=== PATIENT | female | born 1950 | race Caucasian/White ===

== ENCOUNTER 2020-09-03 12:42 | Outpatient (REF) | payer MEDICARE, SELFPAY ==
--- NOTE | 2020-09-03 12:47 | MM_ITS ---
EXAMINATION: BONE DENSITOMETRY CLINICAL INDICATION: Asymptomatic menopausal state. COMPARISON: Previous BD dated 02/07/2017 and baseline BD dated 04/21/2009. TECHNIQUE: Using a [employer] DXA System (software version: 13.1) manufactured by [employer], dual-energy x-ray absorptiometry was performed of the lumbar spine and left hip. The images are of good technical quality. Summary results are attached. FINDINGS: AP SPINE L1-L4: Current: BMD 1.218 g/cm2, Z-score 1.1, T-score 0.3, normal, 0.1% decrease from previous, 7.3% increase from baseline (<5% change is not significant). Prior: BMD 1.219 g/cm2. Baseline: BMD 1.135 g/cm2. LEFT FEMUR, NECK: Current: BMD 0.761 g/cm2, Z-score -0.9, T-score -2.0, osteopenia. Prior: BMD 0.802 g/cm2. Baseline: BMD 0.799 g/cm2. LEFT FEMUR, TOTAL: Current: BMD 0.858 g/cm2, Z-score -0.4, T-score -1.2, osteopenia, 3.9% decrease from previous, 4.8% decrease from baseline (<5% change is not significant). Prior: BMD 0.893 g/cm2. Baseline: BMD 0.901 g/cm2. IDENTIFIED RISK FACTORS: Menopause, 3 or more alcoholic drinks/day. HISTORY OF FRACTURE: Foot; No insufficiency fracture reported. MEDICATIONS: Calcium supplements or multivitamin, vitamin D. MM/XR DEXA axial skeleton IMPRESSION: 1. DIAGNOSIS: Osteopenia based on the lowest T-score value of -2.0 in the femoral neck applying World Health Organization criteria. 2. 10-YEAR FRACTURE RISK PREDICTION, FRAX: Major osteoporotic fracture (clinical spine, forearm, hip or shoulder) 32.3%. Hip fracture 8.9%. 3. Treatment Recommendations: NOF guidelines recommend consideration for treatment in postmenopausal women and men age 50 and older presenting with the following: -A hip or vertebral (clinical or morphometric) fracture. -T-score less than or equal to -2.5 at the femoral neck or spine after appropriate evaluation to exclude secondary causes. -Low bone mass at the hip or spine and a 10-year fracture probability by FRAX of greater than or equal to 3% for hip fracture or greater than or equal to 20% for major osteoporotic fracture based on the [place] adapted WHO algorithm. 4. Other Recommendations: All treatment decisions require clinical judgment and consideration of individual patient factors, including patient preferences, comorbidities, previous drug use, risk factors not captured in the FRAX model (e.g. frailty, falls, vitamin D deficiency, increased bone turnover, interval significant decline in bone density) and possible under or overestimation of fracture risk by FRAX. Additional medical evaluation for secondary cause of low bone mineral density may be appropriate. FUTURE SCAN RECOMMENDATION: People with diagnosed cases of osteoporosis or at high risk for fracture should have regular bone mineral density tests. For patients eligible for Medicare, routine testing is allowed once every 2 years. The testing frequency can be increased to one year for patients who have rapidly progressing disease, those who are receiving or discontinuing medical therapy to restore bone mass, or have additional risk factors.
--- NOTE | 2020-09-03 12:48 | MM_ITS ---
EXAMINATION: MM SCREENING DIGITAL BREAST TOMOSYNTHESIS, BILATERAL CLINICAL INFORMATION: Screening. Asymptomatic. The lifetime risk of breast cancer based on the Tyrer-Cuzick Model is 4.6%. COMPARISON: Mammography: November 27, 2019 and studies dating back to December 18, 2013 TECHNIQUE: Digital breast tomosynthesis is performed in both the craniocaudal and mediolateral oblique views along with computer-aided detection (CAD). Synthesized 2D images are generated from the tomosynthesis. FINDINGS: There are scattered areas of fibroglandular density (ACR BI-RADS breast composition Category b). There are no significant masses, abnormal calcifications, or other abnormalities. MM/MM tomosynthesis screening BI IMPRESSION: There are no significant changes from prior study. ASSESSMENT: BI-RADS 1: Negative RECOMMENDATION: Routine annual mammography screening. This patient's information was entered into a reminder system with a target due date for their next mammogram.
== END 2020-09-03 12:43 | disposition home or self-care (01) ==
LOC: HO.MAMMO 12:42
PROVIDERS: PCP Internal Medicine; Visit Provider Internal Medicine
DX: Z13.820 Encounter for screening for osteoporosis (principal); Z78.0 Asymptomatic menopausal state; Z79.899 Other long term (current) drug therapy; Z12.31 Encounter for screening mammogram for malignant neoplasm of breast
CPT/HCPCS: 77063; 77067; 77080

== ENCOUNTER 2021-06-22 09:06 | Outpatient (REF) | payer MEDICARE, SELFPAY ==
[2021-06-22 12:17] LABS: Alanine Aminotransferase 48 U/L (0-31); Anion Gap 12 (12-20); Aspartate Amino Transferase 35 U/L (5-31); Blood Urea Nitrogen 11 mg/dL (9-16); Calcium 9.6 mg/dL (8.4-10.2); Carbon Dioxide 30 mmol/L (22-29); Chloride 105 mmol/L (96-108); Cholesterol 164 mg/dL; Estimated Glomerular Filt Rate > 60; Glucose Fasting 117 mg/dL (60-99); HDL Cholesterol 49 mg/dL; LDL Cholesterol Calculated 88 mg/dl; Sodium 143 mmol/L (135-145); Triglycerides 135 mg/dL
[2021-06-22 12:28] LABS: Vitamin D 25-OH Total 51.7 ng/mL (>30)
== END 2021-06-22 09:07 | disposition home or self-care (01) ==
LOC: HO.HMGCLDS 09:06
PROVIDERS: PCP Internal Medicine; Visit Provider Internal Medicine
DX: I10 Essential (primary) hypertension (principal); Z78.0 Asymptomatic menopausal state
CPT/HCPCS: 36415; 80048; 80061; 82306; 84450; 84460

== ENCOUNTER 2021-10-28 09:38 | Outpatient (REF) | payer MEDICARE, SELFPAY ==
--- NOTE | ~2021-10-28 | MM_ITS ---
EXAMINATION: MM SCREENING DIGITAL BREAST TOMOSYNTHESIS, BILATERAL CLINICAL INFORMATION: Screening. Asymptomatic. The lifetime risk of breast cancer based on the Tyrer-Cuzick Model is 4%. COMPARISON: Mammography: 09/03/2020, 11/27/2019 TECHNIQUE: Digital breast tomosynthesis is performed in both the craniocaudal and mediolateral oblique views along with computer-aided detection (CAD). Synthesized 2D images are generated from the tomosynthesis. Additional right CC view is provided. FINDINGS: There are scattered areas of fibroglandular density (ACR BI-RADS breast composition Category b). There are no significant masses, abnormal calcifications, or other abnormalities. Parenchymal pattern is similar to prior studies. There is no developing density or architectural abnormality. The axilla and skin contours are unremarkable. No significant changes. MM/MM tomosynthesis screening BI IMPRESSION: No mammographic evidence of malignancy. ASSESSMENT: BI-RADS 1: Negative RECOMMENDATION: Routine annual mammography screening. This patient's information was entered into a reminder system with a target due date for their next mammogram.
== END 2021-10-28 09:39 | disposition home or self-care (01) ==
LOC: HO.MAMMO 09:38
PROVIDERS: Visit Provider Internal Medicine
DX: Z12.31 Encounter for screening mammogram for malignant neoplasm of breast (principal)
CPT/HCPCS: 77063; 77067

== ENCOUNTER 2021-11-08 08:35 | Outpatient (REF) | payer MEDICARE, SELFPAY ==
[2021-11-08 12:11] LABS: Estimated Average Glucose 114 mg/dL; Hemoglobin A1C 149.3387 umol/L; Hemoglobin A1c % 5.6 %
[2021-11-08 12:31] LABS: Alanine Aminotransferase 27 U/L (0-31); Anion Gap 12 (12-20); Aspartate Amino Transferase 22 U/L (5-31); Blood Urea Nitrogen 15 mg/dL (9-16); Carbon Dioxide 29 mmol/L (22-29); Chloride 103 mmol/L (96-108); Cholesterol 194 mg/dL; Estimated Glomerular Filt Rate > 60; Glucose Fasting 107 mg/dL (60-99); HDL Cholesterol 51 mg/dL; LDL Cholesterol Calculated 110 mg/dl; Potassium 4.1 mmol/L (3.3-5.1); Sodium 140 mmol/L (135-145); Triglycerides 167 mg/dL
[2021-11-08 12:36] LABS: Free T4 (Free Thyroxine) 1.32 ng/dL (0.71-1.85); Thyroid Stimulating Hormone 0.12 uIU/mL (0.32-4.0); Vitamin D 25-OH Total 47.8 ng/mL (>30)
== END 2021-11-08 08:36 | disposition home or self-care (01) ==
LOC: HO.HMGCLDS 08:35
PROVIDERS: PCP Internal Medicine; Visit Provider Internal Medicine
DX: E11.29 Type 2 diabetes mellitus with other diabetic kidney complication (principal); I10 Essential (primary) hypertension; R80.9 Proteinuria, unspecified; E03.9 Hypothyroidism, unspecified
CPT/HCPCS: 36415; 80048; 80061; 82306; 83036; 84439; 84443; 84450; 84460

== ENCOUNTER 2022-03-30 07:52 | Outpatient (REF) | payer MEDICARE, SELFPAY ==
[2022-03-30 11:37] LABS: Estimated Average Glucose 111 mg/dL; Hemoglobin A1c % 5.5 %
[2022-03-30 12:00] LABS: Creatinine Urine 134.33 mg/dL; Microalbum/Creatinine Ratio Ur 16.3 ug/mg cr
[2022-03-30 12:15] LABS: Free T4 (Free Thyroxine) 1.52 ng/dL (0.71-1.85); Thyroid Stimulating Hormone 0.09 uIU/mL (0.32-4.0); Vitamin D 25-OH Total 62.2 ng/mL (>30)
[2022-03-30 12:19] LABS: Alanine Aminotransferase 29 U/L (0-31); Anion Gap 13 (12-20); Aspartate Amino Transferase 24 U/L (5-31); Blood Urea Nitrogen 16 mg/dL (9-16); Calcium 9.7 mg/dL (8.4-10.2); Carbon Dioxide 26 mmol/L (22-29); Chloride 104 mmol/L (96-108); Cholesterol 176 mg/dL; Estimated Glomerular Filt Rate > 60; Glucose Fasting 116 mg/dL (60-99); HDL Cholesterol 54 mg/dL; LDL Cholesterol Calculated 98 mg/dl; Potassium 3.8 mmol/L (3.3-5.1); Sodium 139 mmol/L (135-145); Triglycerides 121 mg/dL
== END 2022-03-30 07:53 | disposition home or self-care (01) ==
LOC: HO.HMGCLDS 07:52
PROVIDERS: Visit Provider Internal Medicine
DX: E03.9 Hypothyroidism, unspecified (principal); E11.29 Type 2 diabetes mellitus with other diabetic kidney complication; E78.5 Hyperlipidemia, unspecified; I10 Essential (primary) hypertension; R80.9 Proteinuria, unspecified; Z78.0 Asymptomatic menopausal state
CPT/HCPCS: 36415; 80048; 80061; 82043; 82306; 83036; 84439; 84443; 84450; 84460

== ENCOUNTER 2022-06-27 07:16 | Outpatient (REF) | payer MEDICARE, SELFPAY ==
[2022-06-27 12:03] LABS: Alanine Aminotransferase 34 U/L (0-31); Anion Gap 15 (12-20); Aspartate Amino Transferase 27 U/L (5-31); Blood Urea Nitrogen 12 mg/dL (9-16); Calcium 9.4 mg/dL (8.4-10.2); Carbon Dioxide 28 mmol/L (22-29); Chloride 102 mmol/L (96-108); Cholesterol 160 mg/dL; Estimated Glomerular Filt Rate > 60; Glucose Fasting 113 mg/dL (60-99); HDL Cholesterol 55 mg/dL; LDL Cholesterol Calculated 84 mg/dl; Potassium 3.9 mmol/L (3.3-5.1); Sodium 141 mmol/L (135-145); Triglycerides 106 mg/dL
[2022-06-27 12:23] LABS: Estimated Average Glucose 114 mg/dL; Hemoglobin A1c % 5.6 %
[2022-06-27 12:31] LABS: Free T4 (Free Thyroxine) 1.35 ng/dL (0.71-1.85)
== END 2022-06-27 07:17 | disposition home or self-care (01) ==
LOC: HO.HMGCLDS 07:16
PROVIDERS: PCP Internal Medicine; Visit Provider Internal Medicine
DX: E11.9 Type 2 diabetes mellitus without complications (principal); E78.5 Hyperlipidemia, unspecified; E03.9 Hypothyroidism, unspecified
CPT/HCPCS: 36415; 80048; 80061; 83036; 84439; 84443; 84450; 84460

== ENCOUNTER 2022-11-16 12:47 | Outpatient (REF) | payer MEDICARE, SELFPAY ==
--- NOTE | ~2022-11-16 | MM_ITS ---
EXAMINATION: BONE DENSITOMETRY CLINICAL INDICATION: Other specified disorders of bone density and structure, left thigh. COMPARISON: Previous BD dated 09/03/2020 and baseline BD dated 04/21/2009. TECHNIQUE: Using a [employer] DXA System (software version: 13.1) manufactured by [employer], dual-energy x-ray absorptiometry was performed of the lumbar spine and left hip. The images are of good technical quality. Summary results are attached. FINDINGS: AP SPINE L1-L4: Current: BMD 1.221 g/cm2, Z-score 1.3, T-score 0.3, normal, 0.2% increase from previous, 7.6% increase from baseline (<5% change is not significant). Prior: BMD 1.218 g/cm2. Baseline: BMD 1.135 g/cm2. LEFT FEMUR, NECK: Current: BMD 0.698 g/cm2, Z-score -1.1, T-score -2.4, osteopenia. Prior: BMD 0.761 g/cm2. Baseline: BMD 0.799 g/cm2. LEFT FEMUR, TOTAL: Current: BMD 0.845 g/cm2, Z-score -0.2, T-score -1.3, osteopenia, 1.5% decrease from previous, 6.2% decrease from baseline (<5% change is not significant). Prior: BMD 0.858 g/cm2. Baseline: BMD 0.901 g/cm2. IDENTIFIED RISK FACTORS: Alcohol (3 or more units per day), glucocorticoids (chronic), history of fracture (adult), menopause, thiazide. HISTORY OF FRACTURE: Ankle, wrist. MEDICATIONS: Multivitamin, vitamin D. MM/XR DEXA axial skeleton IMPRESSION: 1. DIAGNOSIS: Osteopenia based on the lowest T-score value of -2.4 in the femoral neck applying World Health Organization criteria. 2. 10-YEAR FRACTURE RISK PREDICTION, FRAX: Major osteoporotic fracture (clinical spine, forearm, hip or shoulder) 40.3%. Hip fracture 15.4%. 3. Treatment Recommendations: NOF guidelines recommend consideration for treatment in postmenopausal women and men age 50 and older presenting with the following: -A hip or vertebral (clinical or morphometric) fracture. -T-score less than or equal to -2.5 at the femoral neck or spine after appropriate evaluation to exclude secondary causes. -Low bone mass at the hip or spine and a 10-year fracture probability by FRAX of greater than or equal to 3% for hip fracture or greater than or equal to 20% for major osteoporotic fracture based on the [place] adapted WHO algorithm. 4. Other Recommendations: All treatment decisions require clinical judgment and consideration of individual patient factors, including patient preferences, comorbidities, previous drug use, risk factors not captured in the FRAX model (e.g. frailty, falls, vitamin D deficiency, increased bone turnover, interval significant decline in bone density) and possible under or overestimation of fracture risk by FRAX. Additional medical evaluation for secondary cause of low bone mineral density may be appropriate. FUTURE SCAN RECOMMENDATION: People with diagnosed cases of osteoporosis or at high risk for fracture should have regular bone mineral density tests. For patients eligible for Medicare, routine testing is allowed once every 2 years. The testing frequency can be increased to one year for patients who have rapidly progressing disease, those who are receiving or discontinuing medical therapy to restore bone mass, or have additional risk factors.
--- NOTE | ~2022-11-16 | MM_ITS ---
EXAMINATION: MM SCREENING DIGITAL BREAST TOMOSYNTHESIS, BILATERAL CLINICAL INFORMATION: Screening. Asymptomatic. The lifetime risk of breast cancer based on the Tyrer-Cuzick Model is 3%. COMPARISON: Mammography: October 28, 2021 and studies dating back to February 05, 2016 TECHNIQUE: Digital breast tomosynthesis is performed in both the craniocaudal and mediolateral oblique views along with computer-aided detection (CAD). Synthesized 2D images are generated from the tomosynthesis. FINDINGS: There are scattered areas of fibroglandular density (ACR BI-RADS breast composition Category b). There are no significant masses, abnormal calcifications, or other abnormalities. MM/MM tomosynthesis screening BI IMPRESSION: No significant changes ASSESSMENT: BI-RADS 1: Negative RECOMMENDATION: Routine annual mammography screening. This patient's information was entered into a reminder system with a target due date for their next mammogram.
== END 2022-11-16 12:48 | disposition home or self-care (01) ==
LOC: HO.MAMMO 12:47
PROVIDERS: Visit Provider Internal Medicine
DX: Z12.31 Encounter for screening mammogram for malignant neoplasm of breast (principal); Z13.820 Encounter for screening for osteoporosis; M85.852 Other specified disorders of bone density and structure, left thigh; N95.9 Unspecified menopausal and perimenopausal disorder; Z87.81 Personal history of (healed) traumatic fracture
CPT/HCPCS: 77063; 77067; 77080

== ENCOUNTER 2022-12-20 08:18 | Outpatient (REF) | payer MEDICARE, SELFPAY ==
[2022-12-20 11:58] LABS: Alanine Aminotransferase 30 U/L (0-31); Anion Gap 13 (12-20); Aspartate Amino Transferase 26 U/L (5-31); Blood Urea Nitrogen 10 mg/dL (9-16); Calcium 9.7 mg/dL (8.4-10.2); Carbon Dioxide 28 mmol/L (22-29); Chloride 104 mmol/L (96-108); Cholesterol 161 mg/dL; Estimated Average Glucose 128 mg/dL; Estimated Glomerular Filt Rate > 60; Free T4 (Free Thyroxine) 1.32 ng/dL (0.71-1.85); Glucose Fasting 127 mg/dL (60-99); HDL Cholesterol 47 mg/dL; Hemoglobin A1c % 6.1 %; LDL Cholesterol Calculated 90 mg/dl; Potassium 3.9 mmol/L (3.3-5.1); Sodium 141 mmol/L (135-145); Thyroid Stimulating Hormone 0.23 uIU/mL (0.32-4.0); Triglycerides 122 mg/dL; Vitamin D 25-OH Total 75.2 ng/mL (>30)
[2022-12-20 12:40] LABS: Creatinine Urine 198.88 mg/dL
== END 2022-12-20 08:19 | disposition home or self-care (01) ==
LOC: HO.HMGCLDS 08:18
PROVIDERS: PCP Internal Medicine; Visit Provider Internal Medicine
DX: Z00.01 Encounter for general adult medical examination with abnormal findings (principal); E03.9 Hypothyroidism, unspecified; E11.9 Type 2 diabetes mellitus without complications; E78.5 Hyperlipidemia, unspecified; I10 Essential (primary) hypertension; M85.852 Other specified disorders of bone density and structure, left thigh; S52.501A Unspecified fracture of the lower end of right radius, initial encounter for closed fracture; S82.841A Displaced bimalleolar fracture of right lower leg, initial encounter for closed fracture; Z78.0 Asymptomatic menopausal state
CPT/HCPCS: 36415; 80048; 80061; 82043; 82306; 83036; 84439; 84443; 84450; 84460

== ENCOUNTER → 2023-01-05 13:03 | Outpatient (BNVA) | payer MEDICARE, SELFPAY | PROVIDERS: PCP Internal Medicine; Visit Provider Internal Medicine | DX: R94.31 Abnormal electrocardiogram [ECG] [EKG] (principal); R07.2 Precordial pain; R80.9 Proteinuria, unspecified; I10 Essential (primary) hypertension; E78.5 Hyperlipidemia, unspecified; E11.29 Type 2 diabetes mellitus with other diabetic kidney complication | CPT/HCPCS: 99202 ==

== ENCOUNTER → 2023-01-20 07:38 | Outpatient (REF) | payer MEDICARE, SELFPAY ==
--- NOTE | ~2023-01-20 | NM_ITS ---
Exercise Myocardial perfusion study Indication: Precordial chest pain to evaluate for myocardial ischemia Technique: The patient was brought in for an exercise perfusion study on 01/20/2023. Patient performed exercise as per [facility] protocol and was injected 30 mCi of sestamibi was given intravenously one target HR was achieved. Images were obtained using the SPECT gamma camera interlaced with the gating device. Images were obtained in supine position. Resting perfusion study was performed on 01/23/2023. Patient was administered 30 mCi of sestamibi intravenously at rest. Images were then obtained in supine position. Images obtained with and without CT attenuation. Total DLP 116 mGy-cm. Images were processed with the software and compared side to side in short axis, horizontal long axis and vertical long axis views. Findings: The stress perfusion study showed non attenuated images show normal uptake of radiotracer in all segments of LV myocardium. Attenuation corrected images show mildly reduced uptake in the apex of the LV myocardium. The gated study shows normal LV systolic function with calculated LVEF of 72%. LV cavity is normal in size. The gated study shows normal systolic wall thickening and contraction of all segments. There is no transient ischemic dilation. Resting study shows no change in perfusion pattern compared to stress perfusion study. Gating at rest reveals normal systolic wall motion with ejection fraction at 67%. The findings are consistent with normal myocardial perfusion. NM/NM cardiolite stress test Impression: 1. Normal myocardial perfusion 2. Gated LVEF is 67% 3. Transient ischemic dilatation not present Stress EKG is negative for ischemia
--- NOTE | 2023-01-20 07:41 | CA_ITS ---
Transthoracic Echocardiogram Patient (Last, First, Middle): Susana Nava S Gender: Female Date of : 1950 Age: 72 Procedure Date: 01/20/2023 Procedure Type: Transthoracic Echocardiogram Location: OP Height: 167.64 cm Weight: 90.72 kg BSA: 2.00 m2 Heart Rate: 52 bpm BP: 131 / 78 mmHg Marketing Development Specialist: SINTIA Referring MD: Giovany Baker MD Chemical Dependency Therapist: Juan Toro MD Symptoms: R07.2 - Precordial pain Study Quality: Adequate w contrast ECG Rhythm: Bradycardia Conclusions: - 1. Hyperdynamic LV systolic function with LVEF of greater than 70% with normal filling pattern 2. Normal cardiac valvular Dopplers 3. Normal RV systolic pressure 4. No gross pericardial effusion Findings Procedure Information Contrast agent, definity, is being given per protocol without apparent complications. The quality of the study was technically difficult. The study quality is limited by patients body habitus. Left Ventricle Normal left ventricular cavity size. There is normal left ventricular wall thickness. The left ventricular systolic function is hyperdynamic. The visually estimated ejection fraction is >70%. Spectral Doppler is indicative of a normal filling pattern. Right Ventricle Normal right ventricular cavity size and systolic function. Atria The left atrium is normal in size. Interatrial shunt cannot be excluded. The right atrium was not well visualized. Aortic Valve There is mild calcification of the aortic valve. There is no aortic valve stenosis. There is no aortic valve regurgitation. Mitral Valve There is mild anterior and posterior mitral leaflet thickening. There is mild mitral annular calcification. There is trace mitral valve regurgitation. There is no mitral valve stenosis. Pulmonic Valve The pulmonic valve was not well visualized. Tricuspid Valve Likely normal tricuspid valve structure and function. There is trace tricuspid valve regurgitation. The right ventricular systolic pressure is normal. The right ventricular systolic pressure is 20 mmHg. Normal right atrial pressure. There is no evidence of pulmonary hypertension. Great Vessels All visible segments of the aorta are normal in size. The pulmonary artery was not well visualized. Venous The inferior vena cava is normal in size and collapses greater than 50% with inspiration. Pericardium/Pleural There is no evidence of pericardial effusion. Prior Study Comparison No prior study available for comparison. Measurements 2D Linear Measurements IVSd: 1.12 0.6-0.9/0.6-1.0 cm LVIDd: 4.71 3.9-5.3/4.2-5.9 cm LVIDd Index: 2.36 2.4-3.2/2.2-3.1 cm/m2 LVIDs: 3.46 2.0-3.6 cm LVPWd: 0.81 0.7-1.1 cm LA Diam: 3.10 2.7-3.8/3.0-4.0 cm LAIDs Index: 1.55 1.5-2.3 cm/m2 LV Mass: 195.94 67-162/88-224 g LV Mass Index: 97.97 43-95/49-115 g/m2 LVOT Diam: 1.90 3.0+(-)1.3 cm 2D Systolic Function EF 4C: 76.60 >55% EF 2C: 75.10 >55% EF BiP: 73.40 >55% Mitral Valve MV Pk E: 0.94 MV PK A: 1.06 MV Decel Time: 197.00 E/A: 0.90 E'Lateral: 7.62 E'Medial: 5.00 E/E' Med: 18.90 E/E' Lat: 12.40 PHT: 58.00 MVA PHT: 3.79 Decel Carlton: 4.78 Aortic Valve AoV Pk Roddy: 1.31 AoV Pk Grad: 7.00 LIA: 2.17 LVOT LVOT Pk Roddy: 1.00 LVOT Mn Roddy: 0.64 LVOT VTI: 0.23 LVOT Pk Grad: 4.00 LVOT Mn Grad: 2.00 LVOT Diam: 1.90 LVOT Area: 2.84 Diastolic Function MV Pk E: 0.94 MV Pk A: 1.06 E/A: 0.90 E'Medial: 5.00 E/E' Med: 18.90 E' Laterial: 7.62 E/E' Lat: 12.40 Right Ventricle TAPSE (mm): 19.50 TVS' Roddy: 11.90 Tricuspid Valve TR Pk Roddy: 2.08 TR Pk Grad: 17.00 RA Press: 3.00 RVSP: 20.00 Great Vessels Aorta Sinus of Valsalva: 3.10 2.0-3.5 cm Ao Asc: 3.20 2.1-3.4 cm Pulmonary Valve PV Pk Roddy: 1.00 Peak PV Grad: 4.00 Updated in Other Vendor System with Status of Final Juan Toro MD electronically signed on 01/21/2023 1:26:05 PM with status of Final
--- NOTE | 2023-01-20 07:41 | CA_ITS ---
Acquisition Time: 2023-01-20 09:04:38 Total Exercise Time: 00:05:08 Test Indications: abn ekg, cp Medications: see h Protocol: LEXI Max HR: 131 BPM 88% of Pred: 148 BPM Max BP: 166/070 mmHG Max Work Load: 6.2 METS Exercise stress test with exercise 5 min 8 sec of Lexi protocol achieving 88% MPHR, with mild SOB, no chest discomfort, with one ventricular cuplet and one isolated PVCs, with normotensive response to exercise, without EKG changes meeting iscemia. Nuclear images pending. Test reviewed with Dr. Toro. Referred By: Giovany Baker Overread By: JENELLE LOZANO
== END ==
LOC: HO.CARD 07:38
PROVIDERS: PCP Internal Medicine; Visit Provider Internal Medicine
DX: R07.2 Precordial pain (principal)
CPT/HCPCS: 78452; 93017; 93306; A9500; Q9957

== ENCOUNTER 2023-03-22 08:51 | Outpatient (REF) | payer MEDICARE, SELFPAY ==
[2023-03-22 11:47] LABS: Estimated Average Glucose 108 mg/dL; Hemoglobin A1c % 5.4 %
[2023-03-22 12:37] LABS: Alanine Aminotransferase 31 U/L (0-31); Anion Gap 14 (12-20); Aspartate Amino Transferase 29 U/L (5-31); Blood Urea Nitrogen 12 mg/dL (9-16); Calcium 9.8 mg/dL (8.4-10.2); Carbon Dioxide 27 mmol/L (22-29); Chloride 104 mmol/L (96-108); Cholesterol 155 mg/dL; Estimated Glomerular Filt Rate > 60; Glucose Fasting 118 mg/dL (60-99); HDL Cholesterol 48 mg/dL; LDL Cholesterol Calculated 80 mg/dl; Potassium 4.2 mmol/L (3.3-5.1); Sodium 141 mmol/L (135-145); Triglycerides 135 mg/dL
[2023-03-22 12:58] LABS: Free T4 (Free Thyroxine) 1.23 ng/dL (0.71-1.85); Thyroid Stimulating Hormone 0.92 uIU/mL (0.32-4.0); Vitamin D 25-OH Total 86.6 ng/mL (>30)
== END 2023-03-22 08:52 | disposition home or self-care (01) ==
LOC: HO.HMGCLDS 08:51
PROVIDERS: PCP Internal Medicine; Visit Provider Internal Medicine
DX: E03.9 Hypothyroidism, unspecified (principal); E11.9 Type 2 diabetes mellitus without complications; E78.5 Hyperlipidemia, unspecified; F41.1 Generalized anxiety disorder; I10 Essential (primary) hypertension; M85.852 Other specified disorders of bone density and structure, left thigh; R94.31 Abnormal electrocardiogram [ECG] [EKG]; Z78.0 Asymptomatic menopausal state; Z82.49 Family history of ischemic heart disease and other diseases of the circulatory system
CPT/HCPCS: 36415; 80048; 80061; 82306; 83036; 84439; 84443; 84450; 84460

== ENCOUNTER → 2023-04-18 13:29 | Outpatient (BNVA) | payer MEDICARE, SELFPAY | PROVIDERS: PCP Internal Medicine; Referring Provider Internal Medicine; Visit Provider Nurse Practitioner Family | DX: R07.2 Precordial pain (principal); R94.31 Abnormal electrocardiogram [ECG] [EKG]; I10 Essential (primary) hypertension; E11.9 Type 2 diabetes mellitus without complications; E78.5 Hyperlipidemia, unspecified; Z79.899 Other long term (current) drug therapy | CPT/HCPCS: 99212 ==

== ENCOUNTER 2023-06-29 08:48 | Outpatient (REF) | payer MEDICARE, SELFPAY ==
[2023-06-29 12:00] LABS: Estimated Average Glucose 111 mg/dL; Hemoglobin A1c % 5.5 % (<6.0)
[2023-06-29 12:26] LABS: Alanine Aminotransferase 33 U/L (0-31); Anion Gap 12 (12-20); Aspartate Amino Transferase 32 U/L (5-31); Blood Urea Nitrogen 7 mg/dL (9-16); Carbon Dioxide 29 mmol/L (22-29); Chloride 102 mmol/L (96-108); Cholesterol 153 mg/dL (<200); Estimated Glomerular Filt Rate > 60; Free T4 (Free Thyroxine) 1.24 ng/dL (0.71-1.85); Glucose Fasting 115 mg/dL (60-99); HDL Cholesterol 47 mg/dL (>40); LDL Cholesterol Calculated 82 mg/dL (<100); Potassium 3.8 mmol/L (3.3-5.1); Sodium 139 mmol/L (135-145); Thyroid Stimulating Hormone 0.31 uIU/mL (0.32-4.0); Triglycerides 122 mg/dL (<150)
== END 2023-06-29 08:49 | disposition home or self-care (01) ==
LOC: HO.HMGCLDS 08:48
PROVIDERS: PCP Internal Medicine; Visit Provider Internal Medicine
DX: E03.9 Hypothyroidism, unspecified (principal); E11.29 Type 2 diabetes mellitus with other diabetic kidney complication; E78.5 Hyperlipidemia, unspecified; F41.1 Generalized anxiety disorder; R80.9 Proteinuria, unspecified; Z82.49 Family history of ischemic heart disease and other diseases of the circulatory system
CPT/HCPCS: 36415; 80048; 80061; 83036; 84439; 84443; 84450; 84460

== ENCOUNTER 2023-07-05 07:48 | Outpatient (AMB) | payer MEDICARE, SELFPAY ==
--- NOTE | 2023-07-05 08:02 | A.OFFPC_ITS ---
Vital Signs 07/05/23 08:15 Height 5 ft 5 in Weight 198 lb BMI 32.9 BP 132/76 Blood Pressure Location Rt brachial Position Sitting Pulse 65 Pulse Source Pulse Oximeter Pulse Oximetry (%) 98 Oxygen Delivery Method Room Air Intake Visit Reasons: annual PE Intake Note: Pt is here today for her PE Allergies atenolol Allergy (Unknown, Verified 07/05/23 08:18) caused heart to pause lisinopril Allergy (Unknown, Verified 07/05/23 08:18) cough Statin drugs Allergy (Unknown, Uncoded 07/05/23 08:18) muscle/joint px Medication List - Last Reconciled 07/05/23 by Divine Swift MD amlodipine 5 mg PO DAILY aspirin 81 mg PO DAILY blood sugar diagnostic ([employer] Ultra Blue Test Strip) Check fasting blood sugar q.a.m.; cholecalciferol (vitamin D3) 25 mcg PO DAILY coenzyme Q10 (Co Q-10) 300 mg PO DAILY hydrochlorothiazide 25 mg PO DAILY inulin grams PO levocetirizine 5 mg PO BEDTIME levothyroxine 112 mcg PO QAM 3 months losartan 50 mg PO DAILY metformin ER 500 mg PO DAILY milk thistle 1,000 mg PO DAILY lvwuwvqqtlcv-jykleraq-zhzbdl 1 tab PO DAILY omeprazole 40 mg PO DAILY PRN pravastatin 80 mg PO DAILY 90 days turmeric-turmeric root extract 450-50 mg caps PO Tobacco use date assessed: 07/05/23 Fall risk assessment: No Falls in past year Last assessed Fall Risk: 07/05/23 Dental Screening Dental Screen Date: 07/05/23 HPI annual PE HPI Details 73-year-old lady with diabetes mellitus, osteopenia of left femoral neck, acquired hypothyroidism, dyslipidemia, hypertension with generalized anxiety disorder currently stable controlled on present treatment, here today for physical exam. She has been feeling well, with no complaints at present time. She is up-to-date with her screening mammogram bone density scan done earlier this year and is up-to-date with her colon cancer screening with a negative Cologuard done last year. She had recent fasting labs done which showed good control of diabetes, with a hemoglobin A1c at 5.5% fasting lipids are within normal limits but LDL cholesterol goal is less than 70 mg/dL.. She is up-to-date with her diabetes retinopathy screening. Has been having intermittent episodes of constipation lately, used a suppository with some relief. Has been increasing her dietary fiber intake, and has tried moving more. Has recurrent pain in hips, left more than the right, takes an occasional ibuprofen and uses CBD oil which does help. Recently seen by Cardiology and had a Mibi stress test and echocardiogram done which showed normal findings. [facility] Medical History (Updated 07/05/23 @ 08:50 by Divine Swift MD) Acquired hypothyroidism Bimalleolar fracture of right ankle Diabetes mellitus with microalbuminuria, without long-term current use of insulin Distal radius fracture, right Dyslipidemia Essential hypertension Family history of premature coronary artery disease Generalized anxiety disorder Hearing impaired History of wrist fracture Hx of fracture of ankle Osteopenia of left femoral neck Positional lightheadedness Postmenopausal Tinnitus of right ear Type 2 diabetes mellitus without complication, with no history of insulin use Surgical History History of ankle surgery History of tonsillectomy Family History Father Lung cancer Diabetes mellitus Mother Myocardial infarction Diabetes mellitus Brother Secondary squamous cell carcinoma of throat Social History Housing: House Alcohol intake: current Alcohol intake frequency: 3 or more drinks per day Patient Tobacco Use Status: Former Tobacco user Years Smoked: 25 yrs e-Cigarette/Vaping Use: Never Used service: No Current occupational status: retired Cognitive needs: No Hearing needs: No Vision needs: Yes Questionnaire PHQ-9 Over the last 2 weeks, how often have you been bothered by any of the following problems? Depression Screening Interpretation: Negative Source: Developed by Drs. Serafin Dillon, Jyoti Peres, Chandu Montenegro and colleagues, with an educational victorina from [employer]. Thrive Questionnaire Date Thrive assessed: 03/31/23 GLADIS-7 AMB Questionnaire GLADIS-7 Date GLADIS - 7 assessed: 03/31/23 Source: Developed by Drs. Serafin Dillon, Jyoti Peres, Chandu Montenegro and colleagues, with an educational victorina from [employer]. Review of Systems Const Denies fatigue, Denies fever(s), Denies headache(s), Denies malaise, Denies poor appetite and Denies weakness Eyes Details: She is up-to-date with her diabetes retinopathy screening and eye exam Reports no additional complaints ENT Reports Normal hearing present, Denies dry mouth, Denies headache(s), Denies nasal congestion, Denies odynophagia, Denies post nasal drip and Denies sore throat Card Denies syncope, Denies irregular heart rhythm, Denies lightheadedness, Denies palpitations, Denies dyspnea and Denies dyspnea on exertion Resp Denies cough, Denies pain on inspiration, Denies dyspnea, Denies dyspnea on exertion and Denies wheezing GI Denies abdominal pain, Denies melena, Denies hematochezia, Denies change in bowel habits, Denies heartburn, Denies nausea and Denies odynophagia Denies hematuria, Denies dysuria, Denies urinary incontinence and Denies urinary hesitancy Musc Denies abnormal gait, Reports arthralgias (Hip hip and knees), Denies joint swelling and Reports stiffness Skin/Breast Denies breast swelling, Denies breast pain, Denies breast mass, Denies lesions, Denies rash, Reports unusual bruising and Reports other Neuro Reports no additional complaints, Reports Normal hearing present, Denies abnormal gait, Denies syncope, Denies headache(s), Denies lack of coordination, Denies Sensory deficit (Neuro) and Denies weakness Psych Reports no additional complaints Endo Denies cold intolerance, Denies fatigue, Denies polyphagia, Denies polydipsia, Denies polyuria and Denies palpitations Osvaldo/Lymph Denies easy bleeding and Denies easy bruising Aller/Immun Denies seasonal rhinorrhea and Denies wheezing Physical exam (Primary Care) Vital Signs: Last Vital Signs Pulse 65 07/05/23 08:15 Pulse Ox 98 07/05/23 08:15 Oxygen Delivery Method Room Air 07/05/23 08:15 BMI result Body Mass Index 32.9 Tobacco/Smoking Status: Tobacco use Status Tobacco use date assessed 07/05/23 07/05/23 08:03 Patient Tobacco Use Status Former Tobacco user 07/05/23 08:03 e-Cigarette/Vaping Use Never Used 07/05/23 08:03 Depression Screening Interpretation: Negative Thrive Assessment: Date of Thrive Assessment Date Thrive assessed 03/31/23 07/05/23 08:03 Const General: cooperative, comfortable and no acute distress Nutritional Appearance: obese Orientation/consciousness: patient oriented x3 Limitations: no limitations HENMT Ears: external ears normal, TM's normal bilaterally and EAC's normal General nose exam: Normal external nose present and No nasal discharge present Mouth: Normal oral and palatal mucosa present, oropharynx normal and moist mucous membranes Eyes General: appearance normal, both eyes and all related structures Conjunctivae: conjunctivae normal Pupils: Equal, round and reactive pupils present EOM: EOMs intact bilaterally Neck Neck: Yes full ROM, Yes no lymphadenopathy and Yes supple Chest Chest palpation & inspection: normal inspection of the chest Breast/axilla palpation: normal palpation of the breasts Resp Effort & Inspection: normal respiratory effort and able to speak in complete sentences Auscultation: clear to auscultation bilaterally Cardio Rate: regular rate Rhythm: regular rhythm Heart sounds: S1 normal heart sound present and S2 normal heart sound present GI Inspection: Yes normal to inspection Palpation (GI): Soft to palpation, nontender and no masses Auscultation: normal bowel sounds General: Yes deferred Back/Spine/Pelvis Cervical Spine: cervical ROM normal Thoracic/Lumbar Spine: thoracic and lumbar spine normal to inspection Skin General skin exam: no rashes or lesions noted Neuro General: patient oriented x3, gait normal, tone normal, moves all extremities, Normal light touch and pain sensation and no focal motor deficits Cranial nerves: Yes Equal, round and reactive pupils present and Yes Normal hearing present Gait exam (Neuro): Normal gait present Motor exam (neuro): 5/5 motor strength present throughout Sensory Exam: No Sensory deficit (Neuro) Extrem Other: Tenderness on palpation over lateral aspect of left hip joint, full range of motion of hip joints noted General: Yes full ROM, Yes no joint enlargement, Yes no pedal edema, Yes no calf tenderness and Yes normal gait Psych Appearance: grossly normal and well kempt Mental Status: mental status grossly normal Speech and movement: Normal speech and movement present Affect: normal affect Thought process: Normal thought process present Results Reviewed Results Reviewed: Laboratory Tests 06/29/23 09:00 Estimat Average Glucose 111 Hemoglobin A1c % 5.5 ENTERED: 06/29/23-0900 BERNICE KUMAR: ORDERED: Met Prof Fast, AST, ALT, Lipid Panel, Free T4, TSH Test Result Flag Reference Site Sodium 139 135-145 mmol/L Potassium 3.8 3.3-5.1 mmol/L CL 102 96-108 mmol/L CO2 29 22-29 mmol/L Gap 12 12-20 BUN 7 L 9-16 mg/dL Creat 0.74 0.5-1.4 mg/dL EGFR > 60 NOTE: For -[place] individuals, multiply the result by 1.210. Chronic Kidney Disease: Estimated GFR < 60 mL/min/1.73m2 Severe Kidney Disease: Estimated GFR < 15 mL/min/1.73m2 FBS 115 H 60-99 mg/dL A fasting glucose from 100-125 mg/dl is considered impaired (pre-diabetes). CA 10.0 8.4-10.2 mg/dL AST (GOT) 32 H 5-31 U/L ALT (GPT) 33 H 0-31 U/L Triglyceride 122 <150 mg/dL Desirable Triglyceride: less than 150 mg/dL Borderline High Triglyceride 150-199 mg/dL High Triglyceride: 200-499 mg/dL Very High Triglyceride: greater than or equal to 5OO mg/dL Cholesterol 153 <200 mg/dL Desirable Cholesterol: less than 200 mg/dL Borderline High Cholesterol: 200-239 mg/dL High Cholesterol: greater than 239 mg/dL LDL Calculated 82 <100 mg/dL Desirable LDL: less than 100 mg/dL Near Optimal/Above Optimal LDL: 110-129 mg/dL Borderline High LDL: 130-159 mg/dL High LDL: 160-189 mg/dL Very High LDL: greater than or equal to 190 mg/dL HDL 47 >40 mg/dL Desirable HDL: greater than 40 mg/dL Note: This HDL assay may give artificially low results in patients with liver disease. Free T4 1.24 0.71-1.85 ng/dL TSH 3rd Gen. 0.31 L 0.32-4.0 uIU/mL TSH 3rd Generation ([facility]) Assessment and Plan Assessment & Plan (1) Annual visit for general adult medical examination with abnormal findings: Code(s): Z00.01 - Encounter for general adult medical examination with abnormal findings Plan: Recent fasting labs reviewed with patient, continue with regular dental visit every 6 months and your eye exams, goes to [facility], currently up-to-date. Take adequate calcium in diet and vitamin-D 3 at 2000 IU per cap once a day, in addition to weight-bearing exercises to help maintain good muscle tone and weight control. Up-to-date with her bone density screening and screening mammogram. Had a negative Cologuard test done last year. Up-to-date with all her vaccines, reminded to get her 2nd Shingrix vaccination and yearly flu shot and the new COVID booster. (2) Essential hypertension: Code(s): I10 - Essential (primary) hypertension Plan: Blood pressure at goal of less than 130/80. Continue with current medication. Reinforced importance of following a low sodium diet, getting regular exercise, and lowering stress levels. (3) Dyslipidemia: Code(s): E78.5 - Hyperlipidemia, unspecified Plan: Reviewed recent fasting lipid profile with patient with LDL cholesterol at 82 mg/dL, goal less than 70. Will continue with pravastatin 80 mg daily at bedtime, in addition to adherence to low-cholesterol diet and regular exercise, at least 30 minutes 3 to 4 times a week. Advised patient to make healthy food choices, eat more fruits, vegetables, whole grains, wild caught fish and low- fat dairy. Limit amount of meat and fried or fatty food products, as well as processed foods and fast foods. Follow-up scheduled with repeat fasting lipid panel in 3 months. (4) Acquired hypothyroidism: Code(s): E03.9 - Hypothyroidism, unspecified Plan: Feels well on current dose of levothyroxine, will continue at 112 mcg daily, repeat another TSH and free T4 in 3 month (5) Generalized anxiety disorder: Code(s): F41.1 - Generalized anxiety disorder Plan: Controlled with behavioral techniques currently not taking any medications for this at present time. (6) Type 2 diabetes mellitus without complication, with no history of insulin use: Code(s): E11.9 - Type 2 diabetes mellitus without complications Plan: Recent lab results reviewed with patient, with sugar and hemoglobin A1c stable and at goal . Continue with metformin ER 500 mg daily continue to check fasting blood sugar at home, maintain log and bring to next appointment for review. Reinforced diabetic diet and regular exercise with patient. Counseled regarding importance of yearly diabetes retinopathy screening. Patient advised to inspect feet daily, for any signs of injury, callus or infection. Compliance with diet and regular exercise again stressed. Blood pressure goal is less than 130/80, goal LDL is less than 100 and goal hemoglobin A1c is less than 7% follow-up appointment made in-3--months, after fasting labs done. (7) Osteopenia of left femoral neck: Code(s): M85.852 - Other specified disorders of bone density and structure, left thigh Orders: Orders Alanine Aminotransferase 09/29/23 E03.9 - Hypothyroidism, unspecified, E11.9 - Type 2 diabetes mellitus without complications, E78.5 - Hyperlipidemia, unspecified, I10 - Essential (primary) hypertension, M85.852 - Other specified disorders of bone density and structure, left thigh, Z78.0 - Asymptomatic menopausal state Aspartate Amino Transferase 09/29/23 E03.9 - Hypothyroidism, unspecified, E11.9 - Type 2 diabetes mellitus without complications, E78.5 - Hyperlipidemia, unspecified, I10 - Essential (primary) hypertension, M85.852 - Other specified disorders of bone density and structure, left thigh, Z78.0 - Asymptomatic menopausal state Basic Metabolic Panel Fasting 09/29/23 E03.9 - Hypothyroidism, unspecified, E11.9 - Type 2 diabetes mellitus without complications, E78.5 - Hyperlipidemia, unspecified, I10 - Essential (primary) hypertension, M85.852 - Other specified disorders of bone density and structure, left thigh, Z78.0 - Asymptomatic menopausal state Hemoglobin A1c 09/29/23 E03.9 - Hypothyroidism, unspecified, E11.9 - Type 2 diabetes mellitus without complications, E78.5 - Hyperlipidemia, unspecified, I10 - Essential (primary) hypertension, M85.852 - Other specified disorders of bone density and structure, left thigh, Z78.0 - Asymptomatic menopausal state Lipid Panel 09/29/23 E03.9 - Hypothyroidism, unspecified, E11.9 - Type 2 diabetes mellitus without complications, E78.5 - Hyperlipidemia, unspecified, I10 - Essential (primary) hypertension, M85.852 - Other specified disorders of bone density and structure, left thigh, Z78.0 - Asymptomatic menopausal state Free T4 (Free Thyroxine) 09/29/23 E03.9 - Hypothyroidism, unspecified, E11.9 - Type 2 diabetes mellitus without complications, E78.5 - Hyperlipidemia, unspecified, I10 - Essential (primary) hypertension, M85.852 - Other specified disorders of bone density and structure, left thigh, Z78.0 - Asymptomatic menopausal state TSH reflex Free T4 09/29/23 E03.9 - Hypothyroidism, unspecified, E11.9 - Type 2 diabetes mellitus without complications, E78.5 - Hyperlipidemia, unspecified, I10 - Essential (primary) hypertension, M85.852 - Other specified disorders of bone density and structure, left thigh, Z78.0 - Asymptomatic menopausal state Coding Level of Care Code Est Pt Prev Care >65y([id number]) Diagnoses Annual visit for general adult medical examination with abnormal findings Z00.01 Essential hypertension I10 Dyslipidemia E78.5 Acquired hypothyroidism E03.9 Generalized anxiety disorder F41.1 Type 2 diabetes mellitus without complication, with no history of insulin use E11.9 Osteopenia of left femoral neck M85.852
[2023-07-05 08:15] VITALS: BP 132/76; PULSE 65; O2SAT 98; BMI 32.9
== END 2023-07-05 08:53 | disposition home or self-care (01) ==
PROVIDERS: Visit Provider Internal Medicine
DX: Z00.00 Encounter for general adult medical examination without abnormal findings (principal); I10 Essential (primary) hypertension; E03.9 Hypothyroidism, unspecified; E11.9 Type 2 diabetes mellitus without complications; F41.1 Generalized anxiety disorder; E78.5 Hyperlipidemia, unspecified; M85.852 Other specified disorders of bone density and structure, left thigh
CPT/HCPCS: 99397

== ENCOUNTER 2023-10-06 07:55 | Outpatient (REF) | payer MEDICARE, SELFPAY ==
[2023-10-06 12:48] LABS: Estimated Average Glucose 120 mg/dL; Hemoglobin A1c % 5.8 % (<6.0)
[2023-10-06 14:58] LABS: Alanine Aminotransferase 35 U/L (0-31); Anion Gap 16 (12-20); Aspartate Amino Transferase 31 U/L (5-31); Blood Urea Nitrogen 11 mg/dL (9-16); Calcium 9.9 mg/dL (8.4-10.2); Carbon Dioxide 26 mmol/L (22-29); Chloride 103 mmol/L (96-108); Cholesterol 140 mg/dL (<200); Estimated Glomerular Filt Rate > 60; Free T4 (Free Thyroxine) 1.25 ng/dL (0.71-1.85); Glucose Fasting 112 mg/dL (60-99); HDL Cholesterol 49 mg/dL (>40); LDL Cholesterol Calculated 71 mg/dL (<100); Potassium 3.2 mmol/L (3.3-5.1); Sodium 142 mmol/L (135-145); TSH reflex Free T4 0.66 uIU/mL (0.32-4.0); Triglycerides 103 mg/dL (<150)
== END 2023-10-06 07:56 | disposition home or self-care (01) ==
LOC: HO.HMGCLDS 07:55
PROVIDERS: PCP Internal Medicine; Visit Provider Internal Medicine
DX: I10 Essential (primary) hypertension (principal); E78.5 Hyperlipidemia, unspecified; E03.9 Hypothyroidism, unspecified; M85.852 Other specified disorders of bone density and structure, left thigh; E11.9 Type 2 diabetes mellitus without complications; Z78.0 Asymptomatic menopausal state
CPT/HCPCS: 36415; 80048; 80061; 83036; 84439; 84443; 84450; 84460

== ENCOUNTER 2023-10-13 10:33 | Outpatient (AMB) | payer MEDICARE, SELFPAY ==
--- NOTE | 2023-10-13 11:25 | MHC.PC.OV ---
Vital Signs 10/13/23 11:26 Height 5 ft 5 in Weight 196 lb 6 oz BMI 32.7 BP 136/78 Blood Pressure Location Rt brachial Position Sitting Pulse 63 Pulse Source Pulse Oximeter Pulse Oximetry (%) 100 Oxygen Delivery Method Room Air Intake Visit Reasons: 3 Month follow up Intake Note: Pt is here to follow up for her lab results Allergies atenolol Allergy (Unknown, Verified 10/13/23 11:38) caused heart to pause lisinopril Allergy (Unknown, Verified 10/13/23 11:38) cough Statin drugs Allergy (Unknown, Uncoded 10/13/23 11:38) muscle/joint px Medication List - Last Reconciled 10/13/23 by Divine Swift MD amlodipine 5 mg PO DAILY aspirin 81 mg PO DAILY blood sugar diagnostic ([employer] Ultra Blue Test Strip) Check fasting blood sugar q.a.m.; cholecalciferol (vitamin D3) 25 mcg PO DAILY coenzyme Q10 (Co Q-10) 300 mg PO DAILY hydrochlorothiazide 25 mg PO DAILY inulin grams PO levocetirizine 5 mg PO BEDTIME levothyroxine 112 mcg PO QAM 3 months losartan 50 mg PO DAILY metformin ER 500 mg PO DAILY milk thistle 1,000 mg PO DAILY kkqcqshyvsob-uqqhbmip-xqayez 1 tab PO DAILY omeprazole 40 mg PO DAILY PRN pravastatin 80 mg PO DAILY 90 days turmeric-turmeric root extract 450-50 mg caps PO Tobacco use date assessed: 10/13/23 Fall risk assessment: No Falls in past year Last assessed Fall Risk: 10/13/23 Dental Screening Dental Screen Date: 10/13/23 Did you have a dental visit in the last 12 months?: Yes Did you have a dental problem in the last 6 months where you did not have access to dental care?: No Was dental information given to patient?: Patient has dentist HPI 3 Month follow up HPI Details 73-year-old lady here with diabetes mellitus, dyslipidemia, hypothyroidism, and hypertension, here today for follow-up. She has been compliant with taking her medications, follows recommended diet, and tries to stay active.. She had recent fasting labs done which showed he good control diabetes mellitus and cholesterol levels, thyroid levels are within normal limits, but she has hypokalemia with a potassium level of 3.2% He has also been having pain and stiffness in left hip, worse with ambulation, unable to lie on her right side when sleeping. No history of any trauma or strenuous exertion. Has been taking turmeric which has not afforded much relief. [facility] Medical History Family history of premature coronary artery disease Positional lightheadedness Tinnitus of right ear Hearing impaired History of wrist fracture Hx of fracture of ankle Type 2 diabetes mellitus without complication, with no history of insulin use Distal radius fracture, right Osteopenia of left femoral neck Bimalleolar fracture of right ankle Generalized anxiety disorder Acquired hypothyroidism Dyslipidemia Diabetes mellitus with microalbuminuria, without long-term current use of insulin Essential hypertension Postmenopausal Surgical History History of ankle surgery History of tonsillectomy Family History Father Lung cancer Diabetes mellitus Mother Myocardial infarction Diabetes mellitus Brother Secondary squamous cell carcinoma of throat Social History Housing: House Alcohol intake: current Alcohol intake frequency: 3 or more drinks per day Patient Tobacco Use Status: Former Tobacco user Years Smoked: 25 yrs e-Cigarette/Vaping Use: Never Used service: No Current occupational status: retired Cognitive needs: No Hearing needs: No Vision needs: Yes Questionnaire PHQ-9 Over the last 2 weeks, how often have you been bothered by any of the following problems? Depression Screening Interpretation: Negative Depression Screening Done: Yes Source: Developed by Drs. Serafin Dillon, Jyoti Peres, Chandu Montenegro and colleagues, with an educational victorina from [employer]. Thrive Questionnaire Date Thrive assessed: 03/31/23 GLADIS-7 AMB Questionnaire GLADIS-7 Date GLADIS - 7 assessed: 03/31/23 Source: Developed by Drs. Serafin Dillon, Jyoti Peres, Chandu Montenegro and colleagues, with an educational victorina from [employer]. Review of Systems Const Denies fatigue, Denies fever(s), Denies headache(s), Denies malaise, Denies poor appetite and Denies weakness Eyes Details: She is up-to-date with her diabetes retinopathy screening and eye exam Reports no additional complaints ENT Reports Normal hearing present, Denies dry mouth, Denies headache(s), Denies nasal congestion, Denies odynophagia, Denies post nasal drip and Denies sore throat Card Denies syncope, Denies irregular heart rhythm, Denies lightheadedness, Denies palpitations, Denies dyspnea and Denies dyspnea on exertion Resp Denies cough, Denies pain on inspiration, Denies dyspnea, Denies dyspnea on exertion and Denies wheezing GI Denies abdominal pain, Denies melena, Denies hematochezia, Denies change in bowel habits, Denies heartburn, Denies nausea and Denies odynophagia Denies hematuria, Denies dysuria, Denies urinary incontinence and Denies urinary hesitancy Musc Reports as per HPI, Denies abnormal gait, Reports arthralgias (Hip hip and knees), Denies joint swelling and Reports stiffness Skin/Breast Denies breast swelling, Denies breast pain, Denies breast mass, Denies lesions, Denies rash, Reports unusual bruising and Reports other Neuro Reports no additional complaints, Reports Normal hearing present, Denies abnormal gait, Denies syncope, Denies headache(s), Denies lack of coordination, Denies Sensory deficit (Neuro) and Denies weakness Psych Reports no additional complaints Endo Denies cold intolerance, Denies fatigue, Denies polyphagia, Denies polydipsia, Denies polyuria and Denies palpitations Osvaldo/Lymph Denies easy bleeding and Denies easy bruising Aller/Immun Denies seasonal rhinorrhea and Denies wheezing Physical exam (Primary Care) Vital Signs: Last Vital Signs Pulse 63 10/13/23 11:26 BP 136/78 10/13/23 11:26 Pulse Ox 100 10/13/23 11:26 Oxygen Delivery Method Room Air 10/13/23 11:26 BMI result Body Mass Index 32.7 Tobacco/Smoking Status: Tobacco use Status Tobacco use date assessed 10/13/23 10/13/23 11:32 Patient Tobacco Use Status Former Tobacco user 10/13/23 11:26 e-Cigarette/Vaping Use Never Used 10/13/23 11:26 Depression Screening Interpretation: Negative Thrive Assessment: Date of Thrive Assessment Date Thrive assessed 03/31/23 10/13/23 11:26 Const General: cooperative, comfortable and no acute distress Nutritional Appearance: obese Orientation/consciousness: patient oriented x3 Limitations: no limitations HENMT Ears: external ears normal, TM's normal bilaterally and EAC's normal General nose exam: Normal external nose present and No nasal discharge present Mouth: Normal oral and palatal mucosa present, oropharynx normal and moist mucous membranes Eyes General: appearance normal, both eyes and all related structures Conjunctivae: conjunctivae normal Pupils: Equal, round and reactive pupils present EOM: EOMs intact bilaterally Neck Neck: Yes full ROM, Yes no lymphadenopathy and Yes supple Resp Effort & Inspection: normal respiratory effort and able to speak in complete sentences Auscultation: clear to auscultation bilaterally Cardio Rate: regular rate Rhythm: regular rhythm Heart sounds: S1 normal heart sound present and S2 normal heart sound present GI Inspection: Yes normal to inspection Palpation (GI): Soft to palpation, nontender and no masses Auscultation: normal bowel sounds General: Yes deferred Back/Spine/Pelvis Cervical Spine: cervical ROM normal Thoracic/Lumbar Spine: thoracic and lumbar spine normal to inspection Skin General skin exam: no rashes or lesions noted Neuro General: patient oriented x3, gait normal, tone normal, moves all extremities, Normal light touch and pain sensation and no focal motor deficits Cranial nerves: Yes Equal, round and reactive pupils present and Yes Normal hearing present Gait exam (Neuro): Normal gait present Motor exam (neuro): 5/5 motor strength present throughout Sensory Exam: No Sensory deficit (Neuro) Extrem Other: Tenderness on palpation over lateral aspect of left hip joint, full range of motion of hip joints noted General: Yes full ROM, Yes no joint enlargement, Yes no pedal edema, Yes no calf tenderness and Yes normal gait Results Reviewed Results Reviewed: SPEC : [id number] MARISOL: 10/06/23 STATUS: COMP REQ : [id number] RECD: 10/06/[address]: Divine Swift MD COMP: 10/06/23 ENTERED: 10/06/23-[address]: ORDERED: Met Prof Fast, AST, ALT, Lipid Panel, Free T4, TSH Rflx Test Result Flag Reference Site Sodium 142 135-145 mmol/L Potassium 3.2 L 3.3-5.1 mmol/L CL 103 96-108 mmol/L CO2 26 22-29 mmol/L Gap 16 12-20 BUN 11 9-16 mg/dL Creat 0.75 0.5-1.4 mg/dL EGFR > 60 NOTE: For -[place]namese individuals, multiply the result by 1.210. Chronic Kidney Disease: Estimated GFR < 60 mL/min/1.73m2 Severe Kidney Disease: Estimated GFR < 15 mL/min/1.73m2 FBS 112 H 60-99 mg/dL A fasting glucose from 100-125 mg/dl is considered impaired (pre-diabetes). CA 9.9 8.4-10.2 mg/dL AST (GOT) 31 5-31 U/L ALT (GPT) 35 H 0-31 U/L Triglyceride 103 <150 mg/dL Desirable Triglyceride: less than 150 mg/dL Borderline High Triglyceride 150-199 mg/dL High Triglyceride: 200-499 mg/dL Very High Triglyceride: greater than or equal to 5OO mg/dL Cholesterol 140 <200 mg/dL Desirable Cholesterol: less than 200 mg/dL Borderline High Cholesterol: 200-239 mg/dL High Cholesterol: greater than 239 mg/dL LDL Calculated 71 <100 mg/dL Desirable LDL: less than 100 mg/dL Near Optimal/Above Optimal LDL: 110-129 mg/dL Borderline High LDL: 130-159 mg/dL High LDL: 160-189 mg/dL Very High LDL: greater than or equal to 190 mg/dL HDL 49 >40 mg/dL Desirable HDL: greater than 40 mg/dL Note: This HDL assay may give artificially low results in patients with liver disease. Free T4 1.25 0.71-1.85 ng/dL TSH 0.66 0.32-4.0 uIU/mL Laboratory Tests 10/06/23 08:00 Estimat Average Glucose 120 Hemoglobin A1c % 5.8 Assessment and Plan Assessment & Plan (1) Type 2 diabetes mellitus without complication, with no history of insulin use: Code(s): E11.9 - Type 2 diabetes mellitus without complications Plan: Diabetes mellitus controlled, with hemoglobin A1c at 5.8% continued on metformin ER 500 mg once a day. Reinforced with adherence to healthy eating habits and getting regular exercise. (2) Acquired hypothyroidism: Code(s): E03.9 - Hypothyroidism, unspecified Plan: Thyroid levels within normal limits, continued on current dose of levothyroxine at 112 mcg daily in a.m. an hour before breakfast (3) Dyslipidemia: Code(s): E78.5 - Hyperlipidemia, unspecified Plan: Reviewed recent fasting lipid profile with patient with levels within normal limits . Continue with pravastatin 80 mg daily , in addition to adherence to low-cholesterol diet and regular exercise, at least 30 minutes 3 to 4 times a week. Advised patient to make healthy food choices, eat more fruits, vegetables, whole grains, wild caught fish and low-fat dairy. Limit amount of meat and fried or fatty food products, as well as processed foods and fast foods. Follow-up scheduled with repeat fasting lipid panel in 3 months. (4) Essential hypertension: Code(s): I10 - Essential (primary) hypertension Plan: Blood pressure at goal of less than 130/80. Continue with current medication. Reinforced importance of following a low sodium diet, getting regular exercise, and lowering stress levels. (5) Hypokalemia: Code(s): E87.6 - Hypokalemia Plan: Started on potassium chloride 10 mEq per tablet to take 1 tablet daily for 7 days. Recheck potassium levels again in a week (6) Pain in left hip: Code(s): M25.552 - Pain in left hip Plan: X-ray left hip ordered, advised to take ibuprofen 400 mg at bedtime and Tylenol arthritis in a.m., resting of joint advised, apply ice pack or try Salonpas patch with ice applied to affected area twice a day as needed. Call if no improvement of symptoms after week Orders: Orders Potassium 12/29/23 E87.6 - Hypokalemia, E11.9 - Type 2 diabetes mellitus without complications, E03.9 - Hypothyroidism, unspecified, E78.5 - Hyperlipidemia, unspecified, I10 - Essential (primary) hypertension, Z78.0 - Asymptomatic menopausal state Hemoglobin A1c 12/29/23 E11.9 - Type 2 diabetes mellitus without complications, E03.9 - Hypothyroidism, unspecified, E78.5 - Hyperlipidemia, unspecified, I10 - Essential (primary) hypertension, Z78.0 - Asymptomatic menopausal state Microalbumin, Random (w Creat) 12/29/23 E11.9 - Type 2 diabetes mellitus without complications, E03.9 - Hypothyroidism, unspecified, E78.5 - Hyperlipidemia, unspecified, I10 - Essential (primary) hypertension, Z78.0 - Asymptomatic menopausal state Vitamin D 25-OH Total 12/29/23 E11.9 - Type 2 diabetes mellitus without complications, E03.9 - Hypothyroidism, unspecified, E78.5 - Hyperlipidemia, unspecified, I10 - Essential (primary) hypertension, Z78.0 - Asymptomatic menopausal state Thyroid Stimulating Hormone 12/29/23 E11.9 - Type 2 diabetes mellitus without complications, E03.9 - Hypothyroidism, unspecified, E78.5 - Hyperlipidemia, unspecified, I10 - Essential (primary) hypertension, Z78.0 - Asymptomatic menopausal state XR hip LT w PEL1V 10/13/23 M25.552 - Pain in left hip Alanine Aminotransferase 12/29/23 E11.9 - Type 2 diabetes mellitus without complications, E03.9 - Hypothyroidism, unspecified, E78.5 - Hyperlipidemia, unspecified, I10 - Essential (primary) hypertension, Z78.0 - Asymptomatic menopausal state Aspartate Amino Transferase 12/29/23 E11.9 - Type 2 diabetes mellitus without complications, E03.9 - Hypothyroidism, unspecified, E78.5 - Hyperlipidemia, unspecified, I10 - Essential (primary) hypertension, Z78.0 - Asymptomatic menopausal state Basic Metabolic Panel Fasting 12/29/23 E11.9 - Type 2 diabetes mellitus without complications, E03.9 - Hypothyroidism, unspecified, E78.5 - Hyperlipidemia, unspecified, I10 - Essential (primary) hypertension, Z78.0 - Asymptomatic menopausal state Lipid Panel 12/29/23 E11.9 - Type 2 diabetes mellitus without complications, E03.9 - Hypothyroidism, unspecified, E78.5 - Hyperlipidemia, unspecified, I10 - Essential (primary) hypertension, Z78.0 - Asymptomatic menopausal state Free T4 (Free Thyroxine) 12/29/23 E03.9 - Hypothyroidism, unspecified, E11.9 - Type 2 diabetes mellitus without complications, E78.5 - Hyperlipidemia, unspecified, I10 - Essential (primary) hypertension, Z78.0 - Asymptomatic menopausal state Medications: New amoxicillin Take 4 capsules or 2000 mg 1 hour before dental procedure 4 caps 2RF potassium chloride ER 10 mEq PO DAILY 7 caps 0RF E87.6 - Hypokalemia Coding Level of Care Code Est Pt Level 4 (10472) Diagnoses Type 2 diabetes mellitus without complication, with no history of insulin use E11.9 Acquired hypothyroidism E03.9 Dyslipidemia E78.5 Essential hypertension I10 Hypokalemia E87.6 Pain in left hip M25.552
[2023-10-13 11:26] VITALS: BP 136/78; PULSE 63; O2SAT 100; BMI 32.7
== END 2023-10-13 15:30 | disposition home or self-care (01) ==
PROVIDERS: PCP Internal Medicine; Visit Provider Internal Medicine
DX: E11.9 Type 2 diabetes mellitus without complications (principal); E03.9 Hypothyroidism, unspecified; E78.5 Hyperlipidemia, unspecified; I10 Essential (primary) hypertension; E87.6 Hypokalemia; M25.552 Pain in left hip
CPT/HCPCS: 99214

== ENCOUNTER 2023-10-13 12:09 | Outpatient (REF) | payer MEDICARE, SELFPAY ==
--- NOTE | ~2023-10-13 | XR_ITS ---
EXAMINATION: XR HIP, LEFT CLINICAL INFORMATION: Pain in left hip COMPARISON: None available. TECHNIQUE: AP pelvis and 2 views of the left hip. FINDINGS: No fracture. Alignment is anatomic. Minimal narrowing of the superior-lateral aspect of the cartilage space of the left hip. Mild to moderate narrowing of the superior-lateral aspect of the cartilage space of the right hip. The and sacroiliac joints and pubic symphysis are within normal limits. XR/XR hip LT w PEL1V IMPRESSION: Osteoarthritis of the hips, right greater than left.
== END 2023-10-13 12:10 | disposition home or self-care (01) ==
LOC: HO.HMGCX 12:09
PROVIDERS: PCP Internal Medicine; Visit Provider Internal Medicine
DX: M25.552 Pain in left hip (principal)
CPT/HCPCS: 73502

== ENCOUNTER 2023-10-24 12:46 | Outpatient (REF) | payer MEDICARE, SELFPAY ==
[2023-10-24 16:36] LABS: Potassium 3.9 mmol/L (3.3-5.1)
== END 2023-10-24 12:47 | disposition home or self-care (01) ==
LOC: HO.HMGCLDS 12:46
PROVIDERS: PCP Internal Medicine; Visit Provider Internal Medicine
DX: E87.6 Hypokalemia (principal)
CPT/HCPCS: 36415; 84132

== ENCOUNTER 2023-11-10 12:37 | Outpatient (REF) | payer MEDICARE, SELFPAY ==
[2023-11-10 18:03] LABS: Potassium 4.3 mmol/L (3.3-5.1)
== END 2023-11-10 12:38 | disposition home or self-care (01) ==
LOC: HO.HMGCLDS 12:37
PROVIDERS: PCP Internal Medicine; Visit Provider Internal Medicine
DX: I10 Essential (primary) hypertension (principal); E87.6 Hypokalemia
CPT/HCPCS: 36415; 84132

== ENCOUNTER 2023-11-23 09:52 | Outpatient (REF) | payer MEDICARE, SELFPAY ==
--- NOTE | ~2023-11-23 | MM_ITS ---
EXAMINATION: MM SCREENING DIGITAL BREAST TOMOSYNTHESIS, BILATERAL CLINICAL INFORMATION: Screening. Asymptomatic. COMPARISON: Mammography: This study is compared with prior exams dating back to 2019. TECHNIQUE: Digital breast tomosynthesis is performed in both the craniocaudal and mediolateral oblique views along with computer-aided detection (CAD). Synthesized 2D images are generated from the tomosynthesis. FINDINGS: There are scattered areas of fibroglandular density (ACR BI-RADS breast composition Category b). In the upper outer quadrant of the right breast, at the lateral fat glandular interface, there is a focal asymmetry which warrants additional mammographic and targeted sonographic evaluation. Faint calcifications lying within this region and magnification mammography is also advised. In the left breast, there are no significant masses, abnormal calcifications, or other abnormalities. MM/MM tomosynthesis screening BI IMPRESSION: Focal asymmetry with associated calcifications of the right breast warrants additional mammographic and targeted sonographic evaluation. This finding could have separate magnification imaging in addition to the spot compression imaging. No mammographic signs of malignancy left breast. ASSESSMENT: BI-RADS BI-RADS 0 - Incomplete: Needs additional Imaging. RECOMMENDATION: 1. Additional views of the right breast. 2. Targeted ultrasound if warranted after review of the additional views. 3. Radiology department staff will contact the patient for additional imaging. Additional Imaging required This examination should not preclude the clinical evaluation of a suspicious palpable abnormality. This patient's information was entered into a reminder system with a target due date for their next mammogram.
== END 2023-11-23 09:53 | disposition home or self-care (01) ==
LOC: HO.MAMMO 09:52
PROVIDERS: PCP Internal Medicine; Visit Provider Internal Medicine
DX: Z12.31 Encounter for screening mammogram for malignant neoplasm of breast (principal)
CPT/HCPCS: 77063; 77067

== ENCOUNTER → 2023-11-23 10:00 | Outpatient (BNV) | payer MEDICARE, SELFPAY | PROVIDERS: PCP Internal Medicine; Visit Provider Radiology Diagnostic Radiology | DX: Z12.31 Encounter for screening mammogram for malignant neoplasm of breast (principal) | CPT/HCPCS: 77063; 77067 ==

== ENCOUNTER 2023-12-19 09:22 | Outpatient (REF) | payer MEDICARE, SELFPAY ==
--- NOTE | ~2023-12-19 | MM_ITS ---
EXAMINATION: MM DIAGNOSTIC DIGITAL BREAST TOMOSYNTHESIS, right breast CLINICAL INFORMATION: The patient presents for further evaluation of a focal asymmetry and calcification of the upper outer quadrant of the right breast. COMPARISON: Mammography: This study is compared with prior exams dating back to 2019. TECHNIQUE: Digital breast tomosynthesis is performed. 2D images are generated from the tomosynthesis. The following views are obtained: CC and lateral magnification imaging and CC and MLO spot compression along with a full lateral view of the right breast is obtained. FINDINGS: There are scattered areas of fibroglandular density (ACR BI-RADS breast composition Category b). Additional views show no significant mass, architectural abnormality, or abnormal calcifications. Few punctate calcifications are present in the upper outer quadrant of the right breast. The original focal asymmetry is due to overlap of normal glandular tissue in the upper outer quadrant. MM/MM tomosynthesis added views R IMPRESSION: No mammographic evidence of malignancy. ASSESSMENT: BI-RADS BI-RADS 1 - Negative RECOMMENDATION: 1 year F/U Results were provided to the patient at time of visit by the technologist. This patient's information was entered into a reminder system with a target due date for their next mammogram.
== END 2023-12-19 09:23 | disposition home or self-care (01) ==
LOC: HO.MAMMO 09:22
PROVIDERS: PCP Internal Medicine; Visit Provider Internal Medicine
DX: N64.89 Other specified disorders of breast (principal)
CPT/HCPCS: 77061; 77065

== ENCOUNTER → 2023-12-19 10:00 | Outpatient (BNV) | payer MEDICARE, SELFPAY | PROVIDERS: PCP Internal Medicine; Visit Provider Radiology Diagnostic Radiology | DX: R92.1 Mammographic calcification found on diagnostic imaging of breast (principal) | CPT/HCPCS: 77065; G0279 ==

== ENCOUNTER 2024-02-14 08:00 | Outpatient (REF) | payer MEDICARE, SELFPAY ==
[2024-02-14 10:38] LABS: Estimated Average Glucose 126 mg/dL; Hemoglobin A1C 146.9044 umol/L
[2024-02-14 10:54] LABS: Creatinine Urine 99.28 mg/dL
[2024-02-14 11:30] LABS: Alanine Aminotransferase 40 U/L (0-31); Anion Gap 11 (12-20); Aspartate Amino Transferase 35 U/L (5-31); Blood Urea Nitrogen 15 mg/dL (9-16); Calcium 9.7 mg/dL (8.4-10.2); Carbon Dioxide 29 mmol/L (22-29); Chloride 104 mmol/L (96-108); Cholesterol 142 mg/dL (<200); Estimated Glomerular Filt Rate > 60; Glucose Fasting 107 mg/dL (60-99); HDL Cholesterol 45 mg/dL (>40); LDL Cholesterol Calculated 77 mg/dL (<100); Potassium 3.5 mmol/L (3.3-5.1); Sodium 140 mmol/L (135-145); Triglycerides 103 mg/dL (<150)
[2024-02-14 11:49] LABS: Free T4 (Free Thyroxine) 1.23 ng/dL (0.71-1.85); Thyroid Stimulating Hormone 0.55 uIU/mL (0.32-4.0)
== END 2024-02-14 08:01 | disposition home or self-care (01) ==
LOC: HO.HMGCLDS 08:00
PROVIDERS: PCP Internal Medicine; Visit Provider Internal Medicine
DX: E11.9 Type 2 diabetes mellitus without complications (principal); E03.9 Hypothyroidism, unspecified; E78.5 Hyperlipidemia, unspecified; I10 Essential (primary) hypertension; Z78.0 Asymptomatic menopausal state
CPT/HCPCS: 36415; 80048; 80061; 82043; 82306; 82570; 83036; 84439; 84443; 84450; 84460

== ENCOUNTER 2024-02-19 08:52 | Outpatient (AMB) | payer MEDICARE, SELFPAY ==
--- NOTE | 2024-02-19 09:20 | MHC.PC.OV ---
Vital Signs 02/19/24 09:21 Height 5 ft 5 in Weight 197 lb BMI 32.8 BP 132/80 Blood Pressure Location Lt brachial Position Sitting Pulse 73 Pulse Source Pulse Oximeter Pulse Oximetry (%) 98 Oxygen Delivery Method Room Air Intake Visit Reasons: 4 month follow up Intake Note: Pt is here today for her 4 months f/u Allergies atenolol Allergy (Unknown, Verified 02/19/24 10:04) caused heart to pause lisinopril Allergy (Unknown, Verified 02/19/24 10:04) cough Statin drugs Allergy (Unknown, Uncoded 02/19/24 10:04) muscle/joint px Medication List - Last Reconciled 02/19/24 by Divine Swift MD amlodipine 5 mg PO DAILY amoxicillin Take 4 capsules or 2000 mg 1 hour before dental procedure aspirin 81 mg PO DAILY blood sugar diagnostic ([employer] Ultra Blue Test Strip) Check fasting blood sugar q.a.m.; cholecalciferol (vitamin D3) 25 mcg PO DAILY coenzyme Q10 (Co Q-10) 300 mg PO DAILY hydrochlorothiazide 25 mg PO DAILY levocetirizine 5 mg PO BEDTIME levothyroxine 112 mcg PO QAM 3 months losartan 50 mg PO DAILY metformin ER 500 mg PO DAILY milk thistle 1,000 mg PO DAILY gmnvxroqtizz-xevhfmwp-jxqznr 1 tab PO DAILY omeprazole 40 mg PO DAILY PRN pravastatin 80 mg PO DAILY 90 days turmeric-turmeric root extract 450-50 mg caps PO Tobacco use date assessed: 02/19/24 Fall risk assessment: No Falls in past year Last assessed Fall Risk: 02/19/24 Dental Screening Dental Screen Date: 10/13/23 Did you have a dental visit in the last 12 months?: Yes Did you have a dental problem in the last 6 months where you did not have access to dental care?: Yes Was dental information given to patient?: Patient has dentist HPI 4 month follow up HPI Details 73-year-old lady, here today for follow-up on her diabetes mellitus, hypothyroidism, hyperlipidemia, and hypertension.. She has been compliant with taking her medications, tries to follow recommended diet , but has been less active, mostly sedentary for the last 3 months. Blood pressure remains stable and controlled on present treatment. Had recent fasting labs done which showed fasting lipids, are within normal limits, with normal electrolytes and renal function, and diabetes mellitus is stable with hemoglobin A1c at 7%. [facility] Medical History Family history of premature coronary artery disease Positional lightheadedness Tinnitus of right ear Hearing impaired History of wrist fracture Hx of fracture of ankle Type 2 diabetes mellitus without complication, with no history of insulin use Distal radius fracture, right Osteopenia of left femoral neck Bimalleolar fracture of right ankle Generalized anxiety disorder Acquired hypothyroidism Dyslipidemia Diabetes mellitus with microalbuminuria, without long-term current use of insulin Essential hypertension Postmenopausal Surgical History History of ankle surgery History of tonsillectomy Family History Father Lung cancer Diabetes mellitus Mother Myocardial infarction Diabetes mellitus Brother Secondary squamous cell carcinoma of throat Social History Housing: House Alcohol intake: current Alcohol intake frequency: 3 or more drinks per day Patient Tobacco Use Status: Former Tobacco user Years Smoked: 25 yrs e-Cigarette/Vaping Use: Never Used service: No Current occupational status: retired Cognitive needs: No Hearing needs: No Vision needs: Yes Questionnaire PHQ-9 Over the last 2 weeks, how often have you been bothered by any of the following problems? 1. Little interest or pleasure in doing things: not at all 2. Feeling down, depressed, or hopeless: not at all 3. Trouble falling or staying asleep, or sleeping too much: not at all 4. Feeling tired or having little energy: not at all 5. Poor appetite or overeating: not at all 6. Feeling bad about yourself - or that you are a failure or have let yourself or your family down: not at all 7. Trouble concentrating on things, such as reading the newspaper or watching television: not at all 8. Moving or speaking so slowly that other people could have noticed. Or the opposite - being so fidgety or restless that you have been moving around a lot more than usual: not at all 9. Thoughts that you would be better off or of hurting yourself in some way: not at all Total score: 0 Depression Screening Interpretation: Negative Depression Screening Done: Yes 10532 - PHQ-9 Billing: Yes Source: Developed by Drs. Serafin Dillon, Jyoti Peres, Chandu Montenegro and colleagues, with an educational victorina from [email or web address]. Thrive Questionnaire Date Thrive assessed: 02/19/24 I am a: Patient What is your living situation today?: I have a steady place to live Within the past 12 months, did the food you bought not last and you didn't have the money to get more?: Never true Within the past 12 months, did you worry whether your food would run out before you got money to buy more?: Never true Do you have trouble paying for medicines?: No Do you have trouble getting transportation to medical appointments?: No Do you have trouble paying your heating and electricity bill?: No Do you have trouble taking care of your child, family member or friend?: No Do you have trouble with day-to-day activities such as bathing, preparing meals, shopping, managing finances, etc.?: No Are you currently unemployed and looking for a job?: No Are you interested in more education?: No THRIVE Score: 0 AUDIT C Alcohol Use Questionnaire (AUDIT-C) 1. How often do you have a drink containing alcohol?: 4 or more times a week 2. How many drinks containing alcohol do you have on a typical day when you are drinking?: 5 or 6 3. How often do you have six or more drinks on one occasion?: Daily or almost daily Total Score: 10 GLADIS-7 AMB Questionnaire GLADIS-7 Date GLADIS - 7 assessed: 02/19/24 Feeling nervous, anxious, or on edge: 0 = Not at all Not being able to stop or control worryin = Several days Worrying too much about different things: 1 = Several days Trouble relaxin = Not at all Being so restless that it is hard to sit still: 0 = Not at all Becoming easily annoyed or irritable: 0 = Not at all Feeling afraid as if something awful might happen: 0 = Not at all Total GLADIS-7 score (0-4 normal; 5-9 mild; 10-14 moderate; 15-21 severe): 2 Source: Developed by Drs. Serafin Dillon, Chandu Escuderonke and colleagues, with an educational victorina from [email or web address]. GLADIS-7 Assessment Billing GLADIS-7 Assessment Tool: GLADIS-7 Assessment 63707 Review of Systems Const Denies fatigue, Denies fever(s), Denies headache(s), Denies malaise, Denies poor appetite and Denies weakness Eyes Details: She is up-to-date with her diabetes retinopathy screening and eye exam Reports no additional complaints ENT Reports Normal hearing present, Denies headache(s) and Denies odynophagia Card Denies syncope, Denies irregular heart rhythm, Denies lightheadedness, Denies palpitations, Denies dyspnea and Denies dyspnea on exertion Resp Denies cough, Denies pain on inspiration, Denies dyspnea, Denies dyspnea on exertion and Denies wheezing GI Denies abdominal pain, Denies melena, Denies hematochezia, Denies change in bowel habits, Denies heartburn, Denies nausea and Denies odynophagia Denies hematuria, Denies dysuria, Denies urinary incontinence and Denies urinary hesitancy Musc Reports as per HPI, Denies abnormal gait, Reports arthralgias (Hip hip and knees), Denies joint swelling and Reports stiffness Skin/Breast Denies breast swelling, Denies breast pain, Denies breast mass, Denies lesions, Denies rash, Reports unusual bruising and Reports other Neuro Reports Normal hearing present, Denies abnormal gait, Denies syncope, Denies headache(s), Denies Sensory deficit (Neuro) and Denies weakness Psych Reports no additional complaints Endo Denies cold intolerance, Denies fatigue, Denies polyphagia, Denies polydipsia, Denies polyuria and Denies palpitations Osvaldo/Lymph Denies easy bleeding and Denies easy bruising Aller/Immun Denies seasonal rhinorrhea and Denies wheezing Physical exam (Primary Care) Vital Signs: Last Vital Signs Pulse 73 02/19/24 09:21 BP 132/80 02/19/24 09:21 Pulse Ox 98 02/19/24 09:21 Oxygen Delivery Method Room Air 02/19/24 09:21 BMI result Body Mass Index 32.8 Tobacco/Smoking Status: Tobacco use Status Tobacco use date assessed 02/19/24 02/19/24 09:28 Patient Tobacco Use Status Former Tobacco user 02/19/24 09:28 e-Cigarette/Vaping Use Never Used 02/19/24 09:28 PHQ-9: PHQ-9 Score PHQ-9: Total score 0 02/20/24 01:04 Depression Screening Interpretation: Negative Thrive Assessment: Date of Thrive Assessment Date Thrive assessed 02/19/24 02/19/24 09:34 Advance Care Planning discussion: Completed/Scanned Date of discussion: 02/19/24 Who was present: Patient Forms completed: Health Care Proxy and MOLST Time spent: 16-45 minutes Actual minutes spent: 16 Const General: cooperative, comfortable and no acute distress Nutritional Appearance: obese Orientation/consciousness: patient oriented x3 Limitations: no limitations HENMT Ears: external ears normal, TM's normal bilaterally and EAC's normal General nose exam: Normal external nose present and No nasal discharge present Mouth: Normal oral and palatal mucosa present, oropharynx normal and moist mucous membranes Eyes General: appearance normal, both eyes and all related structures Conjunctivae: conjunctivae normal Pupils: Equal, round and reactive pupils present EOM: EOMs intact bilaterally Neck Neck: Yes full ROM, Yes no lymphadenopathy and Yes supple Resp Effort & Inspection: normal respiratory effort and able to speak in complete sentences Auscultation: clear to auscultation bilaterally Cardio Rate: regular rate Rhythm: regular rhythm Heart sounds: S1 normal heart sound present and S2 normal heart sound present GI Inspection: Yes normal to inspection Palpation (GI): Soft to palpation, nontender and no masses Auscultation: normal bowel sounds General: Yes deferred Back/Spine/Pelvis Cervical Spine: cervical ROM normal Thoracic/Lumbar Spine: thoracic and lumbar spine normal to inspection Skin General skin exam: no rashes or lesions noted Neuro General: patient oriented x3, gait normal, tone normal, moves all extremities, Normal light touch and pain sensation and no focal motor deficits Cranial nerves: Yes Equal, round and reactive pupils present and Yes Normal hearing present Gait exam (Neuro): Normal gait present Motor exam (neuro): 5/5 motor strength present throughout Sensory Exam: No Sensory deficit (Neuro) Extrem General: Yes full ROM, Yes no joint enlargement, Yes no pedal edema, Yes no calf tenderness and Yes normal gait Psych Appearance: grossly normal and well kempt Mental Status: mental status grossly normal Speech and movement: Normal speech and movement present Affect: normal affect Immunizations pneumoc 20-cristian conj-dip cr(PF) 0.5 mL IM syringe Performing Provider: Divine Swift MD Performing Location[place] [facility] [place] [facility] Administered by: Fatemeh Vickers CMA on 02/19/24 10:12 Dose Route Admin Location Dispensed Lot Number Expiration Date NDC Automatic Nailing Machine Feeder 0.5 mL IM Left Deltoid 0.5 mL [id number] 01/27/25 0696-7030-95 [employer] VIS Given Date VIS Provided VIS Publication Date 02/19/24 Single Vaccine 21 Eligibility Eligibility Date Funding Source Not VFC Eligible 02/19/24 Private Results Reviewed Results Reviewed: Name: Susana Wilburn Age/Sex: 73/F : 1950 Unit#: [id number] Attend Dr: Divine Swift MD Re02/14/24 Status: DEP REF Location: [facility] Disch: SPEC : [id number] MARISOL: 02/14/24 STATUS: COMP REQ : [id number] RECD: 02/14/24-[address]: Divine Swift MD COMP: 02/14/24-1149 ENTERED: 02/14/24-[address]: ORDERED: Met Prof Fast, AST, ALT, Lipid Panel, Vitamin D 25-OH, Free T4, TSH Test Result Flag Reference Sodium 140 135-145 mmol/L Potassium 3.5 3.3-5.1 mmol/L CL 104 96-108 mmol/L CO2 29 22-29 mmol/L Gap 11 L 12-20 BUN 15 9-16 mg/dL Creat 0.74 0.5-1.4 mg/dL EGFR > 60 NOTE: For -Greek individuals, multiply the result by 1.210. Chronic Kidney Disease: Estimated GFR < 60 mL/min/1.73m2 Severe Kidney Disease: Estimated GFR < 15 mL/min/1.73m2 FBS 107 H 60-99 mg/dL A fasting glucose from 100-125 mg/dl is considered impaired (pre-diabetes). CA 9.7 8.4-10.2 mg/dL AST (GOT) 35 H 5-31 U/L ALT (GPT) 40 H 0-31 U/L Triglyceride 103 <150 mg/dL Desirable Triglyceride: less than 150 mg/dL Borderline High Triglyceride 150-199 mg/dL High Triglyceride: 200-499 mg/dL Very High Triglyceride: greater than or equal to 5OO mg/dL Cholesterol 142 <200 mg/dL Desirable Cholesterol: less than 200 mg/dL Borderline High Cholesterol: 200-239 mg/dL High Cholesterol: greater than 239 mg/dL LDL Calculated 77 <100 mg/dL Desirable LDL: less than 100 mg/dL Near Optimal/Above Optimal LDL: 110-129 mg/dL Borderline High LDL: 130-159 mg/dL High LDL: 160-189 mg/dL Very High LDL: greater than or equal to 190 mg/dL HDL 45 >40 mg/dL Desirable HDL: greater than 40 mg/dL Note: This HDL assay may give artificially low results in patients with liver disease. Vit D 25-OH Tot 70.0 >30 ng/mL Health Based Reference Values* < 20 ng/mL Deficient 20-30 ng/mL Insufficient > 30 ng/mL Sufficient Laboratory Tests 02/14/24 08:25 Urine Creatinine 99.28 Urine Microalbumin 7.0 Microalb/Creat Ratio 7.0 Assessment and Plan Assessment & Plan (1) Type 2 diabetes mellitus without complication, with no history of insulin use: Code(s): E11.9 - Type 2 diabetes mellitus without complications Plan: Recent lab results reviewed with patient, with sugar and hemoglobin A1c stable and at goal . Continue with metformin ER 500 mg once a day, continue to check fasting blood sugar at home, maintain log and bring to next appointment for review. Reinforced diabetic diet and regular exercise with patient. Counseled regarding importance of yearly diabetes retinopathy screening currently up-to-date. Patient advised to inspect feet daily, for any signs of injury, callus or infection. Compliance with diet and regular exercise again stressed. Blood pressure goal is less than 130/80, goal LDL is less than 100 and goal hemoglobin A1c is less than 7% follow-up appointment made in-6--months, after fasting labs done. Up-to-date with her vaccinations, Prevnar 20 given today (2) Acquired hypothyroidism: Code(s): E03.9 - Hypothyroidism, unspecified Plan: Thyroid levels are within normal limits, continue with levothyroxine 112 mcg daily in a.m., recheck again in 6 months (3) Dyslipidemia: Code(s): E78.5 - Hyperlipidemia, unspecified Plan: Reviewed recent fasting lipid profile with patient with levels within normal limits . Continue with pravastatin , in addition to adherence to low-cholesterol diet and regular exercise, at least 30 minutes 3 to 4 times a week. Advised patient to make healthy food choices, eat more fruits, vegetables, whole grains, wild caught fish and low-fat dairy. Limit amount of meat and fried or fatty food products, as well as processed foods and fast foods. Follow-up scheduled with repeat fasting lipid panel in 6 months. (4) Essential hypertension: Code(s): I10 - Essential (primary) hypertension Plan: Blood pressure at goal of less than 130/80. Continue with current medication. Reinforced importance of following a low sodium diet, getting regular exercise, and lowering stress levels. (5) Advanced directives, counseling/discussion: Code(s): Z71.89 - Other specified counseling Plan: Initiated the conversation about Advanced Directives. Advanced Directives help patients prepare for current and future decisions about their medical treatment and place of care. Discussed with patient that it is a process where a patients current condition and prognosis are reviewed, their wishes for information regarding their illness are elicited, and likely medical dilemmas are presented and options discussed. Healthcare proxy form and MOLST form done today. These forms can be amended as needed, reviewed yearly and make changes as needed Orders: Orders Pneumococcal 20 Immunization 02/19/24 Z23 - Encounter for immunization Lipid Panel 07/15/24 E03.9 - Hypothyroidism, unspecified, E11.9 - Type 2 diabetes mellitus without complications, E78.5 - Hyperlipidemia, unspecified, I10 - Essential (primary) hypertension Thyroid Stimulating Hormone 07/15/24 E03.9 - Hypothyroidism, unspecified, E11.9 - Type 2 diabetes mellitus without complications, E78.5 - Hyperlipidemia, unspecified, I10 - Essential (primary) hypertension Free T4 (Free Thyroxine) 07/15/24 E03.9 - Hypothyroidism, unspecified, E11.9 - Type 2 diabetes mellitus without complications, E78.5 - Hyperlipidemia, unspecified, I10 - Essential (primary) hypertension Hemoglobin A1c 07/15/24 E03.9 - Hypothyroidism, unspecified, E11.9 - Type 2 diabetes mellitus without complications, E78.5 - Hyperlipidemia, unspecified, I10 - Essential (primary) hypertension Alanine Aminotransferase 07/15/24 E03.9 - Hypothyroidism, unspecified, E11.9 - Type 2 diabetes mellitus without complications, E78.5 - Hyperlipidemia, unspecified, I10 - Essential (primary) hypertension Aspartate Amino Transferase 07/15/24 E03.9 - Hypothyroidism, unspecified, E11.9 - Type 2 diabetes mellitus without complications, E78.5 - Hyperlipidemia, unspecified, I10 - Essential (primary) hypertension Basic Metabolic Panel Fasting 07/15/24 E03.9 - Hypothyroidism, unspecified, E11.9 - Type 2 diabetes mellitus without complications, E78.5 - Hyperlipidemia, unspecified, I10 - Essential (primary) hypertension Coding Level of Care Code Est Pt Level 4 (37237) Diagnoses Type 2 diabetes mellitus without complication, with no history of insulin use E11.9 Acquired hypothyroidism E03.9 Dyslipidemia E78.5 Essential hypertension I10 Advanced directives, counseling/discussion Z71.89 Additional Codes GLADIS-7 Assessment Billing - GLADIS-7 Assessment Tool: GLADIS-7 Assessment 85635 ([id number]) Vital Signs *Quality* - Advance Care Planning discussion: Completed/Scanned ([id number]) Vital Signs *Quality* - Time spent: 16-45 minutes ([id number])
[2024-02-19 09:21] VITALS: BP 132/80; PULSE 73; O2SAT 98; BMI 32.8
== END 2024-02-19 10:09 | disposition home or self-care (01) ==
PROVIDERS: PCP Internal Medicine; Visit Provider Internal Medicine
DX: E11.69 Type 2 diabetes mellitus with other specified complication (principal); E03.9 Hypothyroidism, unspecified; E78.5 Hyperlipidemia, unspecified; I10 Essential (primary) hypertension; Z71.89 Other specified counseling; Z00.00 Encounter for general adult medical examination without abnormal findings
CPT/HCPCS: 1123F; 90471; 90677; 99214; 99497

== ENCOUNTER 2024-07-10 08:48 | Outpatient (REF) | payer MEDICARE, SELFPAY ==
[2024-07-10 10:48] LABS: Alanine Aminotransferase 34 U/L (0-31); Anion Gap 13 (12-20); Aspartate Amino Transferase 32 U/L (5-31); Blood Urea Nitrogen 8 mg/dL (9-16); Carbon Dioxide 28 mmol/L (22-29); Chloride 104 mmol/L (96-108); Cholesterol 136 mg/dL (<200); Estimated Glomerular Filt Rate > 60; Glucose Fasting 125 mg/dL (60-99); HDL Cholesterol 44 mg/dL (>40); LDL Cholesterol Calculated 69 mg/dL (<100); Sodium 141 mmol/L (135-145); Triglycerides 118 mg/dL (<150)
[2024-07-10 10:58] LABS: Estimated Average Glucose 120 mg/dL; Hemoglobin A1c % 5.8 % (<6.0)
[2024-07-10 11:04] LABS: Free T4 (Free Thyroxine) 1.31 ng/dL (0.71-1.85); Thyroid Stimulating Hormone 0.15 uIU/mL (0.32-4.0)
== END 2024-07-10 08:49 | disposition home or self-care (01) ==
LOC: HO.HMGCLDS 08:48
PROVIDERS: PCP Internal Medicine; Visit Provider Internal Medicine
DX: E11.9 Type 2 diabetes mellitus without complications (principal); E03.9 Hypothyroidism, unspecified; E78.5 Hyperlipidemia, unspecified; I10 Essential (primary) hypertension
CPT/HCPCS: 36415; 80048; 80061; 83036; 84439; 84443; 84450; 84460

== ENCOUNTER 2024-07-17 07:57 | Outpatient (AMB) | payer MEDICARE, SELFPAY ==
--- NOTE | 2024-07-17 08:03 | A.OFFPC_ITS ---
Vital Signs 07/17/24 08:11 Height 5 ft 5 in Weight 194 lb BMI 32.3 BP 130/90 H Blood Pressure Location Rt brachial Position Sitting Pulse 66 Pulse Source Pulse Oximeter Pulse Oximetry (%) 97 Intake Visit Reasons: annual PE Intake Note: Pt is here today for her PE: Last cologuard 11/23/21, mammogram 12/19/23, bone density scan 11/16/22 Allergies atenolol Allergy (Unknown, Verified 07/17/24 08:25) caused heart to pause lisinopril Allergy (Unknown, Verified 07/17/24 08:25) cough Statin drugs Allergy (Unknown, Uncoded 07/17/24 08:25) muscle/joint px Medication List - Last Reconciled 07/17/24 by Divine Swift MD amlodipine 5 mg PO DAILY aspirin 81 mg PO DAILY blood sugar diagnostic ([employer] Ultra Blue Test Strip) Check fasting blood sugar q.a.m.; cholecalciferol (vitamin D3) 25 mcg PO DAILY coenzyme Q10 (Co Q-10) 300 mg PO DAILY hydrochlorothiazide 25 mg PO DAILY levocetirizine 5 mg PO BEDTIME levothyroxine 112 mcg PO QAM 3 months losartan 50 mg PO DAILY metformin ER 500 mg PO DAILY milk thistle 1,000 mg PO DAILY lifigohdgrma-ajrwaodu-ydqnkt 1 tab PO DAILY omeprazole 40 mg PO DAILY PRN pravastatin 80 mg PO DAILY 90 days turmeric-turmeric root extract 450-50 mg caps PO Tobacco use date assessed: 07/17/24 Fall risk assessment: No Falls in past year Last assessed Fall Risk: 07/17/24 Dental Screening Dental Screen Date: 07/17/24 Did you have a dental visit in the last 12 months?: No Did you have a dental problem in the last 6 months where you did not have access to dental care?: No Was dental information given to patient?: Patient has dentist HPI annual PE HPI Details 74 year-old lady with past medical histo ry of diabetes mellitus, hypothyroidism, hyperlipidemia, and hypertension, here today for physical exam. She is up-to-date with her routine screenings, with Cologuard 11/23/21, mammogram 12/19/23, bone density scan 11/16/22. Had recent fasting labs done which showed good control of diabetes and cholesterol levels, blood pressure within normal limits, but TSH mildly depressed compared to last check however is asymptomatic with no alteration in bowel movements, no increased fatigue. 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 She has been taking Tylenol arthritis and lying on a heating pad and applying as well absorbent drea ointment which has been helping. Denies any muscle weakness, no urine incontinence reported. Goes to [facility] for her diabetes retinopathy screening. [facility] Medical History Family history of premature coronary artery disease Positional lightheadedness Tinnitus of right ear Hearing impaired History of wrist fracture Hx of fracture of ankle Type 2 diabetes mellitus without complication, with no history of insulin use Distal radius fracture, right Osteopenia of left femoral neck Bimalleolar fracture of right ankle Generalized anxiety disorder Acquired hypothyroidism Dyslipidemia Diabetes mellitus with microalbuminuria, without long-term current use of insulin Essential hypertension Postmenopausal Surgical History History of ankle surgery History of tonsillectomy Family History Father Lung cancer Diabetes mellitus Mother Myocardial infarction Diabetes mellitus Brother Secondary squamous cell carcinoma of throat Social History Housing: House Alcohol intake: current Alcohol intake frequency: 3 or more drinks per day Patient Tobacco Use Status: Former Tobacco user Years Smoked: 25 yrs e-Cigarette/Vaping Use: Never Used service: No Current occupational status: retired Cognitive needs: No Hearing needs: No Vision needs: Yes Questionnaire PHQ-9 Over the last 2 weeks, how often have you been bothered by any of the following problems? 1. Little interest or pleasure in doing things: not at all 2. Feeling down, depressed, or hopeless: not at all 3. Trouble falling or staying asleep, or sleeping too much: not at all 4. Feeling tired or having little energy: not at all 5. Poor appetite or overeating: not at all 6. Feeling bad about yourself - or that you are a failure or have let yourself or your family down: not at all 7. Trouble concentrating on things, such as reading the newspaper or watching television: not at all 8. Moving or speaking so slowly that other people could have noticed. Or the opposite - being so fidgety or restless that you have been moving around a lot more than usual: not at all 9. Thoughts that you would be better off or of hurting yourself in some way: not at all Total score: 0 Depression Screening Interpretation: Negative Depression Screening Done: Yes 90920 - PHQ-9 Billing: Yes Source: Developed by Drs. Serafin Dillon, Chandu Escudero and colleagues, with an educational victorina from [employer]. Thrive Questionnaire Date Thrive assessed: 07/17/24 I am a: Patient What is your living situation today?: I have a steady place to live THRIVE Score: 0 GLADIS-7 AMB Questionnaire GLADIS-7 Date GLADIS - 7 assessed: 02/19/24 Source: Developed by Drs. Serafin Dillon, Jyoti Peres, Chandu Montenegro and colleagues, with an educational victorina from [employer]. Review of Systems Const Denies fatigue, Denies fever(s), Denies headache(s), Denies malaise, Denies poor appetite and Denies weakness Eyes Details: She is up-to-date with her diabetes retinopathy screening and eye exam Reports no additional complaints ENT Reports Normal hearing present, Denies headache(s) and Denies odynophagia Card Denies syncope, Denies irregular heart rhythm, Denies lightheadedness, Denies palpitations, Denies dyspnea and Denies dyspnea on exertion Resp Denies cough, Denies pain on inspiration, Denies dyspnea, Denies dyspnea on exertion and Denies wheezing GI Denies abdominal pain, Denies melena, Denies hematochezia, Denies change in bowel habits, Denies heartburn, Denies nausea and Denies odynophagia Denies hematuria, Denies dysuria, Denies urinary incontinence and Denies urinary hesitancy Musc Reports as per HPI, Denies abnormal gait, Reports arthralgias (Hip hip and knees), Denies joint swelling and Reports stiffness Skin/Breast Denies breast swelling, Denies breast pain, Denies breast mass, Denies lesions, Denies rash, Reports unusual bruising and Reports other Neuro Reports Normal hearing present, Denies abnormal gait, Denies syncope, Denies headache(s), Denies Sensory deficit (Neuro) and Denies weakness Psych Reports no additional complaints Endo Denies cold intolerance, Denies fatigue, Denies polyphagia, Denies polydipsia, Denies polyuria and Denies palpitations Osvaldo/Lymph Denies easy bleeding and Denies easy bruising Aller/Immun Denies seasonal rhinorrhea and Denies wheezing Physical exam (Primary Care) Tobacco/Smoking Status: Tobacco use Status Tobacco use date assessed 02/19/24 07/17/24 08:04 Patient Tobacco Use Status Former Tobacco user 07/17/24 08:04 e-Cigarette/Vaping Use Never Used 07/17/24 08:04 PHQ-9: PHQ-9 Score PHQ-9: Total score 0 07/17/24 08:04 Depression Screening Interpretation: Negative Thrive Assessment: Date of Thrive Assessment Date Thrive assessed 07/17/24 07/17/24 08:04 Const General: cooperative, comfortable and no acute distress Nutritional Appearance: obese Orientation/consciousness: patient oriented x3 HENMT Ears: external ears normal, TM's normal bilaterally and EAC's normal General nose exam: Normal external nose present and No nasal discharge present Mouth: Normal oral and palatal mucosa present, oropharynx normal and moist mucous membranes Eyes General: appearance normal, both eyes and all related structures Conjunctivae: conjunctivae normal Pupils: Equal, round and reactive pupils present EOM: EOMs intact bilaterally Neck Neck: Yes full ROM, Yes no lymphadenopathy and Yes supple Resp Effort & Inspection: normal respiratory effort and able to speak in complete s entences Auscultation: clear to auscultation bilaterally Cardio Rate: regular rate Rhythm: regular rhythm Heart sounds: S1 normal heart sound present and S2 normal heart sound present GI Inspection: Yes normal to inspection Palpation (GI): Soft to palpation, nontender and no masses Auscultation: normal bowel sounds General: Yes deferred Back/Spine/Pelvis Cervical Spine: cervical ROM normal Thoracic/Lumbar Spine: Lasegue's sign negative, straight leg raise negative bilaterally and paraspinal muscle tenderness (bilateral lumbar area) Skin General skin exam: no rashes or lesions noted Neuro General: patient oriented x3, gait normal, tone normal, moves all extremities, Normal light touch and pain sensation and no focal motor deficits Cranial nerves: Yes Equal, round and reactive pupils present and Yes Normal hearing present Gait exam (Neuro): Normal gait present Motor exam (neuro): 5/5 motor strength present throughout Sensory Exam: No Sensory deficit (Neuro) Extrem General: Yes full ROM, Yes no joint enlargement, Yes no pedal edema, Yes no calf tenderness and Yes normal gait Psych Appearance: grossly normal and well kempt Mental Status: mental status grossly normal Speech and movement: Normal speech and movement present Affect: normal affect Results Reviewed Results Reviewed: Laboratory Tests 07/10/24 08:52 Estimat Average Glucose 120 Hemoglobin A1c % 5.8 Name: Susana Wilburn Age/Sex: 74/F : 1950 Unit#: [id number] Attend Dr: Divine Swift MD Re07/10/24 Status: DEP REF Location: [facility] Disch: SPEC : [id number] MARISOL: 07/10/24 STATUS: COMP REQ : [id number] RECD: 07/10/24-[address]: Divine Swift MD COMP: 07/10/24-1103 ENTERED: 07/10/24-[address]: ORDERED: Met Prof Fast, AST, ALT, Lipid Panel, Free T4, TSH Test Result Flag Reference Sodium 141 135-145 mmol/L Potassium 4.0 3.3-5.1 mmol/L CL 104 96-108 mmol/L CO2 28 22-29 mmol/L Gap 13 12-20 BUN 8 L 9-16 mg/dL Creat 0.79 0.5-1.4 mg/dL EGFR > 60 NOTE: For -[place] individuals, multiply the result by 1.210. Chronic Kidney Disease: Estimated GFR < 60 mL/min/1.73m2 Severe Kidney Disease: Estimated GFR < 15 mL/min/1.73m2 FBS 125 H 60-99 mg/dL A fasting glucose from 100-125 mg/dl is considered impaired (pre-diabetes). CA 10.0 8.4-10.2 mg/dL AST (GOT) 32 H 5-31 U/L ALT (GPT) 34 H 0-31 U/L Triglyceride 118 <150 mg/dL Desirable Triglyceride: less than 150 mg/dL Borderline High Triglyceride 150-199 mg/dL High Triglyceride: 200-499 mg/dL Very High Triglyceride: greater than or equal to 5OO mg/dL Cholesterol 136 <200 mg/dL Desirable Cholesterol: less than 200 mg/dL Borderline High Cholesterol: 200-239 mg/dL High Cholesterol: greater than 239 mg/dL LDL Calculated 69 <100 mg/dL Desirable LDL: less than 100 mg/dL Near Optimal/Above Optimal LDL: 110-129 mg/dL Borderline High LDL: 130-159 mg/dL High LDL: 160-189 mg/dL Very High LDL: greater than or equal to 190 mg/dL HDL 44 >40 mg/dL Desirable HDL: greater than 40 mg/dL Note: This HDL assay may give artificially low results in patients with liver disease. Free T4 1.31 0.71-1.85 ng/dL TSH 3rd Gen. 0.15 L 0.32-4.0 uIU/mL TSH 3rd Generation ([facility]) Laboratory Tests 02/14/24 08:20 Hemoglobin A1c % 6.0 Laboratory Tests 02/14/24 08:25 Microalb/Creat Ratio 7.0 Assessment and Plan Assessment & Plan (1) Osteopenia of left femoral neck: Code(s): M85.852 - Other specified disorders of bone density and structure, left thigh Plan: Continue with cholecalciferol supplements, take adequate calcium from dietary sources, continue with regular weight-bearing exercise which includes walking. Repeat bone density scan ordered for 12/16/2024 together with her screening mammogram next year (2) Acquired hypothyroidism: Code(s): E03.9 - Hypothyroidism, unspecified Plan: TSH decreased on recent lab draw, with normal free T4. Will repeat another TSH and free T4 in 6 weeks, in the meantime will continue on current dose of levothyroxine 112 mcg daily in a.m. (3) Lumbago: Code(s): M54.50 - Low back pain, unspecified Qualifiers: Chronicity: acute Back pain laterality: bilateral Sciatica presence: without sciatica Qualified Code(s): M54.50 - Low back pain, unspecified Plan: Continue with applying heat or applying Salonpas patch to affected area in lower back, may take Tylenol arthritis 500 mg every 6 hours as needed alternating with ibuprofen 200 mg per tablet. (4) Dyslipidemia: Code(s): E78.5 - Hyperlipidemia, unspecified Plan: Reviewed recent fasting lipid profile with patient with levels within normal . Continue pravastatin 80 mg daily at night , in addition to adherence to low-cholesterol diet and regular exercise, at least 30 minutes 3 to 4 times a week. Advised patient to make healthy food choices, eat more fruits, vegetables, whole grains, wild caught fish and low-fat dairy. Limit amount of meat and fried or fatty food products, as well as processed foods and fast foods. Follow-up scheduled with repeat fasting lipid panel in 6 months. (5) Essential hypertension: Code(s): I10 - Essential (primary) hypertension Plan: Blood pressure at goal of less than 130/80. Continue with current medication. Reinforced importance of following a low sodium diet, getting regular exercise, and lowering stress levels. (6) Type 2 diabetes mellitus without complication, with no history of insulin use: Code(s): E11.9 - Type 2 diabetes mellitus without complications Plan: Recent lab results reviewed with patient, with sugar and hemoglobin A1c stable and at goal. Continue with metformin 500 mg once a day, continue to check fasting blood sugar at home, maintain log and bring to next appointment for review. Reinforced diabetic diet and regular exercise with patient. Up-to-date with her diabetes retinopathy screening, goes to [facility] . Patient advi sed to inspect feet daily, for any signs of injury, callus or infection. Compliance with diet and regular exercise again stressed. Blood pressure goal is less than 130/80, goal LDL is less than 100 and goal hemoglobin A1c is less than 7% follow-up appointment made in-see--months, after fasting labs done. (7) Annual visit for general adult medical examination with abnormal findings: Code(s): Z00.01 - Encounter for general adult medical examination with abnormal findings Plan: Recent fasting labs discussed with patient. Continue with dental visit every 6 months and regular eye exams, yearly, goes to [facility]. Take adequate calcium in diet and vitamin-D 3 at 2000 IU per cap once a day, in addition to weight-bearing exercises to help maintain good muscle tone and weight control. Instructed to do self-breast exam, and continue yearly mammogram, ordered a repeat bone density scan to be done next year together with screening mammogram up-to-date with her Cologuard testing, due again next year. Up-to-date with all her vaccinations, reminded to get her yearly flu shot and COVID booster Orders: Orders XR DEXA axial skeleton Today M85.852 - Other specified disorders of bone density and structure, left thigh, Z78.0 - Asymptomatic menopausal state Free T4 (Free Thyroxine) 6 Weeks E03.9 - Hypothyroidism, unspecified Aspartate Amino Transferase 12/28/24 E03.9 - Hypothyroidism, unspecified, E11.9 - Type 2 diabetes mellitus without complications, E78.5 - Hyperlipidemia, unspecified, I10 - Essential (primary) hypertension, M85.852 - Other specified disorders of bone density and structure, left thigh, Z78.0 - Asymptomatic menopausal state Microalbumin, Random (w Creat) 12/28/24 E03.9 - Hypothyroidism, unspecified, E11.9 - Type 2 diabetes mellitus without complications, E78.5 - Hyperlipidemia, unspecified, I10 - Essential (primary) hypertension, M85.852 - Other specified disorders of bone density and structure, left thigh, Z78.0 - Asymptomatic menopausal state Thyroid Stimulating Hormone 6 Weeks E03.9 - Hypothyroidism, unspecified Hemoglobin A1c 12/28/24 E03.9 - Hypothyroidism, unspecified, E11.9 - Type 2 diabetes mellitus without complications, E78.5 - Hyperlipidemia, unspecified, I10 - Essential (primary) hypertension, M85.852 - Other specified disorders of bone density and structure, left thigh, Z78.0 - Asymptomatic menopausal state Lipid Panel 12/28/24 E03.9 - Hypothyroidism, unspecified, E11.9 - Type 2 diabetes mellitus without complications, E78.5 - Hyperlipidemia, unspecified, I10 - Essential (primary) hypertension, M85.852 - Other specified disorders of bone density and structure, left thigh, Z78.0 - Asymptomatic menopausal state Alanine Aminotransferase 12/28/24 E03.9 - Hypothyroidism, unspecified, E11.9 - Type 2 diabetes mellitus without complications, E78.5 - Hyperlipidemia, unspecified, I10 - Essential (primary) hypertension, M85.852 - Other specified disorders of bone density and structure, left thigh, Z78.0 - Asymptomatic menopausal state Basic Metabolic Panel Fasting 12/28/24 E03.9 - Hypothyroidism, unspecified, E11.9 - Type 2 diabetes mellitus without complications, E78.5 - Hyperlipidemia, unspecified, I10 - Essential (primary) hypertension, M85.852 - Other specified disorders of bone density and structure, left thigh, Z78.0 - Asymptomatic menopausal state Thyroid Stimulating Hormone 12/28/24 E03.9 - Hypothyroidism, unspecified, E11.9 - Type 2 diabetes mellitus without complications, E78.5 - Hyperlipidemia, unspecified, I10 - Essential (primary) hypertension, M85.852 - Other specified disorders of bone density and structure, left thigh, Z78.0 - Asymptomatic menopausal state Free T4 (Free Thyroxine) 12/28/24 E03.9 - Hypothyroidism, unspecified, E11.9 - Type 2 diabetes mellitus without complications, E78.5 - Hyperlipidemia, unspecified, I10 - Essential (primary) hypertension, M85.852 - Other specified disorders of bone density and structure, left thigh, Z78.0 - Asymptomatic menopausal state Vitamin D 25-OH Total 12/28/24 E03.9 - Hypothyroidism, unspecified, E11.9 - Type 2 diabetes mellitus without complications, E78.5 - Hyperlipidemia, unspecified, I10 - Essential (primary) hypertension, M85.852 - Other specified disorders of bone density and structure, left thigh, Z78.0 - Asymptomatic menopausal state Coding Level of Care Code Est Pt Prev Care >65y(03169) Diagnoses Osteopenia of left femoral neck M85.852 Acquired hypothyroidism E03.9 Acute bilateral low back pain without sciatica M54.50 Chronicity: acute Back pain laterality: bilateral Sciatica presence: without sciatica Dyslipidemia E78.5 Essential hypertension I10 Type 2 diabetes mellitus without complication, with no history of insulin use E11.9 Annual visit for general adult medical examination with abnormal findings Z.
[2024-07-17 08:11] VITALS: BP 130/90; PULSE 66; O2SAT 97; BMI 32.3
== END 2024-07-17 08:58 | disposition home or self-care (01) ==
PROVIDERS: PCP Internal Medicine; Visit Provider Internal Medicine
DX: Z00.00 Encounter for general adult medical examination without abnormal findings (principal); E11.69 Type 2 diabetes mellitus with other specified complication; E78.5 Hyperlipidemia, unspecified; M85.852 Other specified disorders of bone density and structure, left thigh; E03.9 Hypothyroidism, unspecified; M54.50 Low back pain, unspecified; I10 Essential (primary) hypertension

== ENCOUNTER → 2024-07-17 07:57 | Outpatient (BNVA) | payer MEDICARE, SELFPAY | PROVIDERS: PCP Internal Medicine; Visit Provider Internal Medicine ==

== ENCOUNTER 2024-10-02 09:09 | Outpatient (REF) | payer MEDICARE, SELFPAY ==
[2024-10-02 11:12] LABS: Thyroid Stimulating Hormone 0.83 uIU/mL (0.32-4.0)
== END 2024-10-02 09:10 | disposition home or self-care (01) ==
LOC: HO.HMGCLDS 09:09
PROVIDERS: PCP Internal Medicine; Visit Provider Internal Medicine
DX: E03.9 Hypothyroidism, unspecified (principal)
CPT/HCPCS: 36415; 84439; 84443

== ENCOUNTER 2024-12-18 10:59 | Outpatient (REF) | payer MEDICARE, SELFPAY | END 2024-12-18 11:00 | disposition home or self-care (01) | LOC: HO.MAMMO 10:59 | PROVIDERS: PCP Internal Medicine; Visit Provider Internal Medicine | DX: Z12.31 Encounter for screening mammogram for malignant neoplasm of breast (principal); Z13.820 Encounter for screening for osteoporosis; Z78.0 Asymptomatic menopausal state; M85.852 Other specified disorders of bone density and structure, left thigh | CPT/HCPCS: 77063; 77067; 77080 ==

== ENCOUNTER → 2024-12-18 11:30 | Outpatient (BNV) | payer MEDICARE, SELFPAY | PROVIDERS: PCP Internal Medicine; Visit Provider Radiology Diagnostic Radiology | DX: Z12.31 Encounter for screening mammogram for malignant neoplasm of breast (principal) | CPT/HCPCS: 77063; 77067 ==

== ENCOUNTER 2025-01-16 09:13 | Outpatient (REF) | payer MEDICARE, SELFPAY ==
[2025-01-16 10:26] LABS: Estimated Average Glucose 120 mg/dL; Hemoglobin A1c % 5.8 % (<6.0)
[2025-01-16 11:05] LABS: Alanine Aminotransferase 36 U/L (0-31); Anion Gap 12 (12-20); Aspartate Amino Transferase 33 U/L (5-31); Blood Urea Nitrogen 7 mg/dL (9-16); Calcium 9.6 mg/dL (8.4-10.2); Carbon Dioxide 28 mmol/L (22-29); Chloride 104 mmol/L (96-108); Cholesterol 154 mg/dL (<200); Estimated Glomerular Filt Rate > 60; Glucose Fasting 114 mg/dL (60-99); HDL Cholesterol 52 mg/dL (>40); LDL Cholesterol Calculated 77 mg/dL (<100); Potassium 3.3 mmol/L (3.3-5.1); Sodium 141 mmol/L (135-145); Triglycerides 128 mg/dL (<150)
[2025-01-16 11:13] LABS: Free T4 (Free Thyroxine) 1.46 ng/dL (0.71-1.85); Vitamin D 25-OH Total 85.9 ng/mL (>30)
[2025-01-16 13:53] LABS: Creatinine Urine 130.31 mg/dL; Microalbum/Creatinine Ratio Ur 16.1 ug/mg cr (<30)
== END 2025-01-16 09:14 | disposition home or self-care (01) ==
LOC: HO.HMGCLDS 09:13
PROVIDERS: PCP Internal Medicine; Visit Provider Internal Medicine
DX: E11.9 Type 2 diabetes mellitus without complications (principal); M85.852 Other specified disorders of bone density and structure, left thigh; Z78.0 Asymptomatic menopausal state; I10 Essential (primary) hypertension; E78.5 Hyperlipidemia, unspecified; E03.9 Hypothyroidism, unspecified
CPT/HCPCS: 36415; 80048; 80061; 82043; 82306; 82570; 83036; 84439; 84443; 84450; 84460

== ENCOUNTER 2025-01-23 10:37 | Outpatient (AMB) | payer MEDICARE, SELFPAY ==
[2025-01-23 12:04] VITALS: BP 128/72; PULSE 67; RESP 15; TEMP 36.8; O2SAT 97; BMI 32.1
--- NOTE | 2025-01-23 12:04 | MHC.PC.OV ---
Vital Signs 01/23/25 12:04 Height 5 ft 5 in Weight 193 lb BMI 32.1 BP 128/72 Blood Pressure Location Lt brachial Position Sitting Respiration 15 Pulse 67 Pulse Source Pulse Oximeter Temp 98.2 F Temp Source Oral Pulse Oximetry (%) 97 Oxygen Delivery Method Room Air Intake Visit Reasons: 6m F/U-Reschedule Intake Note: Pt is here today for her 6mo. f/u Allergies atenolol Allergy (Unknown, Verified 01/23/25 12:26) caused heart to pause lisinopril Allergy (Unknown, Verified 01/23/25 12:26) cough Statin drugs Allergy (Unknown, Uncoded 01/23/25 12:26) muscle/joint px Medication List - Last Reconciled 01/23/25 by Divine Swift MD amlodipine 5 mg PO DAILY aspirin 81 mg PO DAILY blood sugar diagnostic (Xola Ultra Blue Test Strip) Check fasting blood sugar q.a.m.; cholecalciferol (vitamin D3) 25 mcg PO DAILY coenzyme Q10 (Co Q-10) 300 mg PO DAILY hydrochlorothiazide 25 mg PO DAILY levocetirizine 5 mg PO BEDTIME levothyroxine 112 mcg PO QAM 3 months losartan 50 mg PO DAILY metformin ER 500 mg PO DAILY milk thistle 1,000 mg PO DAILY bvbouxjiwela-oucdqhza-hvpavo 1 tab PO DAILY omeprazole 40 mg PO DAILY PRN pravastatin 80 mg PO DAILY 90 days turmeric-turmeric root extract 450-50 mg caps PO Tobacco use date assessed: 01/23/25 Fall risk assessment: No Falls in past year Dental Screening Dental Screen Date: 01/23/25 Did you have a dental visit in the last 12 months?: No Did you have a dental problem in the last 6 months where you did not have access to dental care?: No Was dental information given to patient?: Patient has dentist HPI 6m F/U-Reschedule HPI Details 74 year old lady with history of hypertension, diabetes mellitus, hypothyroidism and dyslipidemia, here today for he follow-up visit. She has been feeling well, compliant with her medications and diet. Latest fasting labs showed diabetes well controlled at with a hemoglobin A1c of 5.8%, with normal fasting lipids, thyroid levels, electrolytes and renal function. [facility] Medical History (Updated 01/23/25 @ 12:40 by Divine Swift MD) Peripheral neuropathy Family history of premature coronary artery disease Positional lightheadedness Tinnitus of right ear Hearing impaired History of wrist fracture Hx of fracture of ankle Type 2 diabetes mellitus without complication, with no history of insulin use Distal radius fracture, right Osteopenia of left femoral neck Bimalleolar fracture of right ankle Generalized anxiety disorder Acquired hypothyroidism Dyslipidemia Diabetes mellitus with microalbuminuria, without long-term current use of insulin Essential hypertension Postmenopausal Surgical History History of ankle surgery History of tonsillectomy Family History Father Lung cancer Diabetes mellitus Mother Myocardial infarction Diabetes mellitus Brother Secondary squamous cell carcinoma of throat Social History Housing: House Alcohol intake: current Alcohol intake frequency: 3 or more drinks per day Patient Tobacco Use Status: Former Tobacco user Years Smoked: 25 yrs e-Cigarette/Vaping Use: Never Used service: No Current occupational status: retired Cognitive needs: No Hearing needs: No Vision needs: Yes Questionnaire PHQ-9 Over the last 2 weeks, how often have you been bothered by any of the following problems? 1. Little interest or pleasure in doing things: not at all 2. Feeling down, depressed, or hopeless: not at all 3. Trouble falling or staying asleep, or sleeping too much: not at all 4. Feeling tired or having little energy: not at all 5. Poor appetite or overeating: not at all 6. Feeling bad about yourself - or that you are a failure or have let yourself or your family down: not at all 7. Trouble concentrating on things, such as reading the newspaper or watching television: not at all 8. Moving or speaking so slowly that other people could have noticed. Or the opposite - being so fidgety or restless that you have been moving around a lot more than usual: not at all 9. Thoughts that you would be better off or of hurting yourself in some way: not at all Total score: 0 Depression Screening Interpretation: Negative Depression Screening Done: Yes [id number] - PHQ-9 Billing: Yes Source: Developed by Rickey Barretoet B.W. Ja, Chandu Montenegro and colleagues, with an educational victorina from [employer]. Thrive Questionnaire Date Thrive assessed: 01/16/25 I am a: Patient What is your living situation today?: I have a steady place to live Within the past 12 months, did the food you bought not last and you didn't have the money to get more?: Never true Within the past 12 months, did you worry whether your food would run out before you got money to buy more?: Never true Do you have trouble paying for medicines?: No Do you have trouble getting transportation to medical appointments?: No Do you have trouble paying your heating and electricity bill?: No Do you have trouble taking care of your child, family member or friend?: No Do you have trouble with day-to-day activities such as bathing, preparing meals, shopping, managing finances, etc.?: No Are you currently unemployed and looking for a job?: No Are you interested in more education?: No Please select the resources that you would like help with: None THRIVE Score: 0 AUDIT C Alcohol Use Questionnaire (AUDIT-C) 1. How often do you have a drink containing alcohol?: 2-3 times a week 2. How many drinks containing alcohol do you have on a typical day when you are drinking?: 3 or 4 3. How often do you have six or more drinks on one occasion?: Less than monthly Total Score: 5 GLADIS-7 AMB Questionnaire GLADIS-7 Date GLADIS - 7 assessed: 01/23/25 Feeling nervous, anxious, or on edge: 0 = Not at all Not being able to stop or control worryin = Not at all Worrying too much about different things: 0 = Not at all Trouble relaxin = Not at all Being so restless that it is hard to sit still: 0 = Not at all Becoming easily annoyed or irritable: 0 = Not at all Feeling afraid as if something awful might happen: 0 = Not at all Total GLADIS-7 score (0-4 normal; 5-9 mild; 10-14 moderate; 15-21 severe): 0 Source: Developed by Jyoti Barreto, Chandu Montenegro and colleagues, with an educational victorina from [employer]. Review of Systems Const Denies fatigue, Denies fever(s), Denies headache(s), Denies malaise, Denies poor appetite and Denies weakness Eyes Details: She is up-to-date with her diabetes retinopathy screening and eye exam , goes to [facility] Reports no additional complaints ENT Reports Normal hearing present, Denies headache(s) and Denies odynophagia Card Denies syncope, Denies irregular heart rhythm, Denies lightheadedness, Denies palpitations, Denies dyspnea and Denies dyspnea on exertion Resp Denies cough, Denies pain on inspiration, Denies dyspnea, Denies dyspnea on exertion and Denies wheezing GI Denies abdominal pain, Denies melena, Denies hematochezia, Denies change in bowel habits, Denies heartburn, Denies nausea and Denies odynophagia Denies hematuria, Denies dysuria, Denies urinary incontinence and Denies urinary hesitancy Musc Reports as per HPI, Denies abnormal gait, Reports arthralgias (Hip hip and knees), Denies joint swelling and Reports stiffness Skin/Breast Denies breast swelling, Denies breast pain, Denies breast mass, Denies lesions and Denies rash Neuro Reports Normal hearing present, Denies abnormal gait, Denies syncope, Denies headache(s), Denies Sensory deficit (Neuro) and Denies weakness Psych Reports no additional complaints Endo Denies cold intolerance, Denies fatigue, Denies polyphagia, Denies polydipsia, Denies polyuria and Denies palpitations Osvaldo/Lymph Denies easy bleeding and Denies easy bruising Aller/Immun Denies seasonal rhinorrhea and Denies wheezing Physical exam (Primary Care) Vital Signs: Last Vital Signs Temp 98.2 F 01/23/25 12:04 Pulse 67 01/23/25 12:04 Resp 15 01/23/25 12:04 BP 128/72 01/23/25 12:04 Pulse Ox 97 01/23/25 12:04 Oxygen Delivery Method Room Air 01/23/25 12:04 BMI result Body Mass Index 32.1 Tobacco/Smoking Status: Tobacco use Status Tobacco use date assessed 01/23/25 01/23/25 12:09 Patient Tobacco Use Status Former Tobacco user 01/23/25 12:09 e-Cigarette/Vaping Use Never Used 01/23/25 12:09 PHQ-9: PHQ-9 Score PHQ-9: Total score 0 01/23/25 12:43 Depression Screening Interpretation: Negative Thrive Assessment: Date of Thrive Assessment Date Thrive assessed 01/16/25 01/23/25 12:09 Const General: cooperative, comfortable and no acute distress Nutritional Appearance: obese Orientation/consciousness: patient oriented x3 HENMT Ears: external ears normal, TM's normal bilaterally and EAC's normal General nose exam: Normal external nose present and No nasal discharge present Mouth: Normal oral and palatal mucosa present, oropharynx normal and moist mucous membranes Eyes General: appearance normal, both eyes and all related structures Conjunctivae: conjunctivae normal Pupils: Equal, round and reactive pupils present EOM: EOMs intact bilaterally Neck Neck: Yes full ROM, Yes no lymphadenopathy and Yes supple Resp Effort & Inspection: normal respiratory effort and able to speak in complete sentences Auscultation: clear to auscultation bilaterally Cardio Rate: regular rate Rhythm: regular rhythm Heart sounds: S1 normal heart sound present and S2 normal heart sound present GI Inspection: Yes normal to inspection Palpation (GI): Soft to palpation, nontender and no masses Auscultation: normal bowel sounds General: Yes deferred Skin General skin exam: no rashes or lesions noted Neuro General: patient oriented x3, gait normal, tone normal, moves all extremities, Normal light touch and pain sensation and no focal motor deficits Cranial nerves: Yes Equal, round and reactive pupils present and Yes Normal hearing present Gait exam (Neuro): Normal gait present Motor exam (neuro): 5/5 motor strength present throughout Sensory Exam: No Sensory deficit (Neuro) Extrem General: Yes full ROM, Yes no joint enlargement, Yes no pedal edema, Yes no calf tenderness and Yes normal gait Psych Appearance: grossly normal and well kempt Mental Status: mental status grossly normal Speech and movement: Normal speech and movement present Affect: normal affect Results Reviewed Results Reviewed: Laboratory Tests 01/16/25 01/16/25 09:22 09:30 Estimat Average Glucose 120 Hemoglobin A1c % 5.8 Urine Creatinine 130.31 Urine Microalbumin 21.0 Microalb/Creat Ratio 16.1 Name: Susana Wilburn Age/Sex: 74/F : 1950 Unit#: [id number] Attend Dr: Divine Swift MD Re01/16/25 Status: DEP REF Location: [facility] Disch: SPEC : [id number] MARISOL: 01/16/25 STATUS: COMP REQ : [id number] RECD: 01/16/25-[address]: Divine Swift MD COMP: 01/16/25 ENTERED: 01/16/[address]: ORDERED: Met Prof Fast, AST, ALT, Lipid Panel, Vitamin D 25-OH, Free T4, TSH Test Result Flag Reference Sodium 141 135-145 mmol/L Potassium 3.3 3.3-5.1 mmol/L CL 104 96-108 mmol/L CO2 28 22-29 mmol/L Gap 12 12-20 BUN 7 L 9-16 mg/dL Creat 0.66 0.5-1.4 mg/dL eGFR > 60 Chronic Kidney Disease: Estimated GFR < 60 mL/min/1.73m2 Severe Kidney Disease: Estimated GFR < 15 mL/min/1.73m2 FBS 114 H 60-99 mg/dL A fasting glucose from 100-125 mg/dl is considered impaired (pre-diabetes). CA 9.6 8.4-10.2 mg/dL AST (GOT) 33 H 5-31 U/L ALT (GPT) 36 H 0-31 U/L Triglyceride 128 <150 mg/dL Desirable Triglyceride: less than 150 mg/dL Borderline High Triglyceride 150-199 mg/dL High Triglyceride: 200-499 mg/dL Very High Triglyceride: greater than or equal to 5OO mg/dL Cholesterol 154 <200 mg/dL Desirable Cholesterol: less than 200 mg/dL Borderline High Cholesterol: 200-239 mg/dL High Cholesterol: greater than 239 mg/dL LDL Calculated 77 <100 mg/dL Desirable LDL: less than 100 mg/dL Near Optimal/Above Optimal LDL: 110-129 mg/dL Borderline High LDL: 130-159 mg/dL High LDL: 160-189 mg/dL Very High LDL: greater than or equal to 190 mg/dL HDL 52 >40 mg/dL Desirable HDL: greater than 40 mg/dL Note: This HDL assay may give artificially low results in patients with liver disease. Vitamin D 25-OH 85.9 >30 ng/mL Health Based Reference Values* < 20 ng/mL Deficient 20-30 ng/mL Insufficient > 30 ng/mL Sufficient *Darshan AHUJA. N Engl J Med. 2007;357:266-280 There is no well-established upper level of normal vitamin D levels. Some laboratories use 50 ng/mL as an upper limit of normal. However, toxicity is patient-dependent and may occur at any level. Careful correlation with the patient's presentation is necessary and, if there is concern for vitamin D toxicity, treatment should be considered irrespective of the serum level. Care must be taken in interpreting Vitamin D results from different laboratories and methodologies. Published data demonstrated that results from patients undergoing hemodialysis may show a negative bias when tested with various automated 25-OH vitamin D assays when compared to LC-MS/MS. When testing samples from patients whose predominant form of Vitamin D is Vitamin D2, such as patients receiving Vitamin D2 supplementation, results that are subtherapeutic should be confirmed with another method such as LC-MS/MS. Free T4 1.46 0.71-1.85 ng/dL TSH 3rd Gen. 0.10 L 0.32-4.0 uIU/mL TSH 3rd Generation ([facility]) Coding Level of Care Code Est Pt Level 4 (60357) Complex EM visit Add On G2211 Diagnoses Type 2 diabetes mellitus without complication, with no history of insulin use E11.9 Osteopenia of left femoral neck M85.852 Acquired hypothyroidism E03.9 Dyslipidemia E78.5 Essential hypertension I10 Additional Codes PHQ-9 - 75961 - PHQ-9 Billing: Yes ([id number]) Assessment & Plan Assessment & Plan (1) Type 2 diabetes mellitus without complication, with no history of insulin use: Code(s): E11.9 - Type 2 diabetes mellitus without complications Category: Medical Plan: Well-controlled diabetes mellitus, continued on metformin ER 500 mg daily, up-to-date with her diabetes retinopathy screening, goes to [facility], podiatry referral ordered for yearly diabetes foot exam (2) Osteopenia of left femoral neck: Code(s): M85.852 - Other specified disorders of bone density and structure, left thigh Category: Medical Plan: Latest bone density done in November 2024 showed osteopenia still in left femoral neck, no history of fractures, continue with regular weight-bearing exercise, take adequate calcium from dietary sources and continue with vitamin-D 3 supplements at least 2000 units daily (3) Acquired hypothyroidism: Code(s): E03.9 - Hypothyroidism, unspecified Category: Medical Plan: Thyroid levels are within normal limits, continue current dose of levothyroxine 112 mcg daily (4) Dyslipidemia: Code(s): E78.5 - Hyperlipidemia, unspecified Category: Medical Plan: Fasting lipids are within normal limits, continue on pravastatin 80 mg at bedtime (5) Essential hypertension: Code(s): I10 - Essential (primary) hypertension Category: Medical Plan: Blood pressure at goal of less than 130/80. Continue with current medication. Reinforced importance of following a low sodium diet, getting regular exercise, and lowering stress levels. Orders: Orders Alanine Aminotransferase 06/30/25 E03.9 - Hypothyroidism, unspecified, E11.9 - Type 2 diabetes mellitus without complications, E78.5 - Hyperlipidemia, unspecified, F41.1 - Generalized anxiety disorder, G62.9 - Polyneuropathy, unspecified, I10 - Essential (primary) hypertension, M85.852 - Other specified disorders of bone density and structure, left thigh Aspartate Amino Transferase 06/30/25 E03.9 - Hypothyroidism, unspecified, E11.9 - Type 2 diabetes mellitus without complications, E78.5 - Hyperlipidemia, unspecified, F41.1 - Generalized anxiety disorder, G62.9 - Polyneuropathy, unspecified, I10 - Essential (primary) hypertension, M85.852 - Other specified disorders of bone density and structure, left thigh Basic Metabolic Panel Fasting 06/30/25 E03.9 - Hypothyroidism, unspecified, E11.9 - Type 2 diabetes mellitus without complications, E78.5 - Hyperlipidemia, unspecified, F41.1 - Generalized anxiety disorder, G62.9 - Polyneuropathy, unspecified, I10 - Essential (primary) hypertension, M85.852 - Other specified disorders of bone density and structure, left thigh Free T4 (Free Thyroxine) 06/30/25 E03.9 - Hypothyroidism, unspecified, E11.9 - Type 2 diabetes mellitus without complications, E78.5 - Hyperlipidemia, unspecified, F41.1 - Generalized anxiety disorder, G62.9 - Polyneuropathy, unspecified, I10 - Essential (primary) hypertension, M85.852 - Other specified disorders of bone density and structure, left thigh Hemoglobin A1c 06/30/25 E03.9 - Hypothyroidism, unspecified, E11.9 - Type 2 diabetes mellitus without complications, E78.5 - Hyperlipidemia, unspecified, F41.1 - Generalized anxiety disorder, G62.9 - Polyneuropathy, unspecified, I10 - Essential (primary) hypertension, M85.852 - Other specified disorders of bone density and structure, left thigh Thyroid Peroxidase Antibodies 06/30/25 E03.9 - Hypothyroidism, unspecified, E11.9 - Type 2 diabetes mellitus without complications, E78.5 - Hyperlipidemia, unspecified, F41.1 - Generalized anxiety disorder, G62.9 - Polyneuropathy, unspecified, I10 - Essential (primary) hypertension, M85.852 - Other specified disorders of bone density and structure, left thigh Lipid Panel 06/30/25 E03.9 - Hypothyroidism, unspecified, E11.9 - Type 2 diabetes mellitus without complications, E78.5 - Hyperlipidemia, unspecified, F41.1 - Generalized anxiety disorder, G62.9 - Polyneuropathy, unspecified, I10 - Essential (primary) hypertension, M85.852 - Other specified disorders of bone density and structure, left thigh Referrals Podiatry Referral E11.9 - Type 2 diabetes mellitus without complications, G62.9 - Polyneuropathy, unspecified
== END 2025-01-23 12:50 | disposition home or self-care (01) ==
LOC: HO.HMCC 10:38
PROVIDERS: PCP Internal Medicine; Visit Provider Internal Medicine
DX: E11.9 Type 2 diabetes mellitus without complications (principal); M85.852 Other specified disorders of bone density and structure, left thigh; E03.9 Hypothyroidism, unspecified; E78.5 Hyperlipidemia, unspecified; I10 Essential (primary) hypertension

== ENCOUNTER → 2025-01-23 10:37 | Outpatient (BNVA) | payer MEDICARE, SELFPAY | PROVIDERS: PCP Internal Medicine; Visit Provider Internal Medicine | DX: E11.9 Type 2 diabetes mellitus without complications (principal); E03.9 Hypothyroidism, unspecified; E78.5 Hyperlipidemia, unspecified; M85.852 Other specified disorders of bone density and structure, left thigh; I10 Essential (primary) hypertension | CPT/HCPCS: 96127; 99212 ==

== ENCOUNTER 2025-08-07 10:02 | Outpatient (REF) | payer MEDICARE, SELFPAY ==
[2025-08-07 14:28] LABS: Alanine Aminotransferase 55 U/L (0-31); Anion Gap 11 (12-20); Aspartate Amino Transferase 57 U/L (5-31); Blood Urea Nitrogen 12 mg/dL (9-16); Calcium 10.1 mg/dL (8.4-10.2); Carbon Dioxide 29 mmol/L (22-29); Chloride 104 mmol/L (96-108); Cholesterol 145 mg/dL (<200); Estimated Glomerular Filt Rate > 60; HDL Cholesterol 40 mg/dL (>40); Potassium 3.7 mmol/L (3.3-5.1); Sodium 140 mmol/L (135-145); Triglycerides 99 mg/dL (<150)
[2025-08-07 14:44] LABS: Free T4 (Free Thyroxine) 1.31 ng/dL (0.71-1.85)
[2025-08-07 16:57] LABS: Hemoglobin A1C 149.2011 umol/L
== END 2025-08-07 10:03 | disposition home or self-care (01) ==
LOC: HO.HMGCLDS 10:02
PROVIDERS: PCP Internal Medicine; Visit Provider Internal Medicine
DX: E11.9 Type 2 diabetes mellitus without complications (principal); G62.9 Polyneuropathy, unspecified; M85.852 Other specified disorders of bone density and structure, left thigh; F41.1 Generalized anxiety disorder; E03.9 Hypothyroidism, unspecified; E78.5 Hyperlipidemia, unspecified; I10 Essential (primary) hypertension
CPT/HCPCS: 36415; 80048; 80061; 83036; 84439; 84450; 84460; 86376

== ENCOUNTER 2025-08-14 08:23 | Outpatient (AMB) | payer MEDICARE, SELFPAY ==
--- OUTSIDE RECORDS SUMMARY | 2025-08-14 08:39 | XMS_ITS | Patient Health Record ---
Author Organization [facility] Address [address] [place] [address] Care Team Providers Care Industrial Management Teacher Name Role Phone Ina MCCONNELL, Danielle Primary Care Provider U prachiflora Serafin Rodriguez Unavailable [phone] Allergies Allergen (clinical drug ingredient) Drug/Non Drug Allergy documented on EMR Reaction Allergy Type Onset Date Status lisinopril Lisinopril Unknown Drug Allergy Activ e atenolol Atenolol Unknown Drug Allergy Active Reason For Referral No Information Medications Medication SIG (Take, Route, Frequency, Duration) Notes Start Date End Date Status Tekturna 300mg Activ e Synthroid 100mcg Act leena Amlodipine & Diet Manage Pro d 2.5mg Active Omeprazole 20mg Acti ve Vitamin E 800iu Acti ve Vitamin D 1000iu Act leena Milk Thistle 400mg A ctive Aspirin Childrens 81mg Active hydroCHLOROthiazide 25mg Active MoviPrep 100 GM as directed Orally once; Duration: 1 dose 08/27/2012 Active DermOtic 0.01% Activ e Problems Problem Type SNOMED Code ICD Code Onset Dates Problem Status W/U Status Risk Notes Problem Alcoholic liver damage (67238903) Unspecified alcoholic liver damage (571.3) Active confirmed Problem Chronic nonalcoholic liver disease (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) Other chronic nonalcoholic liver disease (571.8) Active confirmed Problem Liver function tests abnormal (649150963) Nonspecific abnormal results of liver function study (794.8) Active confirmed Problem Colon cancer screening (135968222) Colon cancer screening (V76.51) Active confirmed Problem Computed tomography of abdomen abnormal (finding) (96622198758304 107) Abnormal computed tomography of gastrointestinal tract (793.4) Active confirmed Problem History of adenomatous polyp of colon (166085020) History of adenomatous polyp of colon (V12.72) Active confirmed Problem Fatty liver (495150372) Fatty liver (571.8) Active confirmed Plan Of Treatment Pending Test Test Name Order Date XR BARIUM SWALLOW-ESOPHAGUS 08/07/2013 Future Test Test Name Order Date Liver Function Test (LFT) 10/10/2011 COLONOSCOPY 07/24/2012 Insurance Providers Payer Name Payer Address Payer Phone Subscriber Number Group Number Insured Name Patient Relationship to Insured Coverage Start Date Coverage End Date [facility] [address] [place], [place] [phone] [id number] DAVIDSON RAMOS Self - patient is the insured Medical (General) History Medical History History ICD Code Colon polyps/Tubular adenomas 04/25/2007 GERD Diverticulosis Hypothyroidism HTN presumed component of fatty liver in relation to alcohol, obesity and hyperlipidemia. Denies [place],DM,CVA,Lung disease,renal dise ase Surgical History Surgery Date(Month/Year) C Section Liposuction
--- NOTE | 2025-08-14 09:02 | MHC.PC.OV ---
Vital Signs 08/14/25 09:03 Height 5 ft 5 in Weight 193 lb BMI 32.1 BP 128/70 Blood Pressure Location Lt brachial Position Sitting Respiration 16 Pulse 78 Pulse Source Pulse Oximeter Temp 97.9 F Temp Source Oral Pulse Oximetry (%) 98 Oxygen Delivery Method Room Air Intake Visit Reasons: Annual PE - see comments Intake Note: Pt is here today for her PE: last mammogram 12/18/24, bone density scan 12/18/24, cologuard 09/05/12 Division Order Technician Required: No Allergies atenolol Allergy (Unknown, Verified 08/21/25 20:28) caused heart to pause lisinopril Allergy (Unknown, Verified 08/21/25 20:28) cough Statin drugs Allergy (Unknown, Uncoded 08/21/25 20:28) muscle/joint px Medication List - Last Reconciled 08/21/25 by Divine Swift MD amlodipine 5 mg PO DAILY aspirin 81 mg PO DAILY blood sugar diagnostic (Pressiuch Ultra Blue Test Strip) Check fasting blood sugar q.a.m.; cholecalciferol (vitamin D3) 25 mcg PO DAILY coenzyme Q10 (Co Q-10) 300 mg PO DAILY hydrochlorothiazide 25 mg PO DAILY levocetirizine 5 mg PO BEDTIME levothyroxine 112 mcg PO QAM 3 months losartan 50 mg PO DAILY metformin ER 500 mg PO DAILY milk thistle 1,000 mg PO DAILY cmcuirtshmxm-vqadvrkl-lcnlan 1 tab PO DAILY omeprazole 40 mg PO DAILY PRN pravastatin 80 mg PO DAILY 90 days turmeric-turmeric root extract 450-50 mg caps PO Tobacco use date assessed: 08/14/25 Fall risk assessment: No Falls in past year Last assessed Fall Risk: 08/14/25 Dental Screening Dental Screen Date: 08/14/25 Did you have a dental visit in the last 12 months?: No Did you have a dental problem in the last 6 months where you did not have access to dental care?: No Was dental information given to patient?: Patient has dentist HPI Annual PE - see comments HPI Details 75-year-old female with past medical history significant for dyslipidemia, hypertension, acquired hypothyroidism, and type 2 diabetes mellitus with no complications, osteopenia , hearing impaired, here today for her physical exam. Up-to-date with her breast cancer screening, last done 12/18/2024 together with her bone density scan which showed negative findings and presence of osteopenia in left total hip and left femoral neck, with normal bone density in her lumbar spine. The patient experiences allergic rhinitis, with symptoms of sinus congestion and postnasal drip, particularly during the fall season. She is currently taking levocetirizine. [facility] Medical History Peripheral neuropathy Family history of premature coronary artery disease Positional lightheadedness Tinnitus of right ear Hearing impaired History of wrist fracture Hx of fracture of ankle Type 2 diabetes mellitus without complication, with no history of insulin use Distal radius fracture, right Osteopenia of left femoral neck Bimalleolar fracture of right ankle Generalized anxiety disorder Acquired hypothyroidism Dyslipidemia Diabetes mellitus with microalbuminuria, without long-term current use of insulin Essential hypertension Postmenopausal Surgical History History of ankle surgery History of tonsillectomy Family History Father Lung cancer Diabetes mellitus Mother Myocardial infarction Diabetes mellitus Brother Secondary squamous cell carcinoma of throat Social History Housing: House Alcohol intake: current Alcohol intake frequency: 3 or more drinks per day Patient Tobacco Use Status: Former Tobacco user Years Smoked: 25 yrs e-Cigarette/Vaping Use: Never Used service: No Current occupational status: retired Cognitive needs: No Hearing needs: No Vision needs: Yes Questionnaire PHQ-9 Over the last 2 weeks, how often have you been bothered by any of the following problems? 1. Little interest or pleasure in doing things: not at all 2. Feeling down, depressed, or hopeless: not at all 3. Trouble falling or staying asleep, or sleeping too much: not at all 4. Feeling tired or having little energy: not at all 5. Poor appetite or overeating: not at all 6. Feeling bad about yourself - or that you are a failure or have let yourself or your family down: not at all 7. Trouble concentrating on things, such as reading the newspaper or watching television: not at all 8. Moving or speaking so slowly that other people could have noticed. Or the opposite - being so fidgety or restless that you have been moving around a lot more than usual: not at all 9. Thoughts that you would be better off or of hurting yourself in some way: not at all Total score: 0 Depression Screening Interpretation: Negative Depression Screening Done: Yes Source: Developed by Drs. Serafin Dillon, Jyoti Peres, Chadnu Montenegro and colleagues, with an educational victorina from [employer]. Thrive Questionnaire Date Thrive assessed: 01/16/25 I am a: Patient What is your living situation today?: I have a steady place to live Within the past 12 months, did the food you bought not last and you didn't have the money to get more?: Never true Within the past 12 months, did you worry whether your food would run out before you got money to buy more?: Never true Do you have trouble paying for medicines?: No Do you have trouble getting transportation to medical appointments?: No Do you have trouble paying your heating and electricity bill?: No Do you have trouble taking care of your child, family member or friend?: No Do you have trouble with day-to-day activities such as bathing, preparing meals, shopping, managing finances, etc.?: No Are you currently unemployed and looking for a job?: No Are you interested in more education?: No Please select the resources that you would like help with: None THRIVE Score: 0 AUDIT C Alcohol Use Questionnaire (AUDIT-C) 1. How often do you have a drink containing alcohol?: 2-3 times a week 2. How many drinks containing alcohol do you have on a typical day when you are drinking?: 3 or 4 3. How often do you have six or more drinks on one occasion?: Less than monthly Total Score: 5 GLADIS-7 AMB Questionnaire GLADIS-7 Date GLADIS - 7 assessed: 01/23/25 Feeling nervous, anxious, or on edge: 0 = Not at all Not being able to stop or control worryin = Not at all Worrying too much about different things: 0 = Not at all Trouble relaxin = Not at all Being so restless that it is hard to sit still: 0 = Not at all Becoming easily annoyed or irritable: 0 = Not at all Feeling afraid as if something awful might happen: 0 = Not at all Total GLADIS-7 score (0-4 normal; 5-9 mild; 10-14 moderate; 15-21 severe): 0 Source: Developed by Drs. Serafin Dillon, Jyoti Peres, Chandu Montenegro and colleagues, with an educational victorina from [employer]. Review of Systems Const Denies fatigue, Denies fever(s), Denies headache(s), Denies malaise, Denies poor appetite and Denies weakness Eyes Details: She is up-to-date with her diabetes retinopathy screening and eye exam , goes to [facility] Reports no additional complaints ENT Reports Normal hearing present and Denies headache(s) Card Denies syncope, Denies irregular heart rhythm, Denies lightheadedness, Denies palpitations, Denies dyspnea and Denies dyspnea on exertion Resp Denies cough, Denies pain on inspiration, Denies dyspnea, Denies dyspnea on exertion and Denies wheezing GI Denies abdominal pain, Denies melena, Denies hematochezia, Denies change in bowel habits and Denies heartburn Denies hematuria, Denies dysuria, Denies urinary incontinence and Denies urinary hesitancy Musc Denies abnormal gait, Reports arthralgias (Hip hip and knees), Denies joint swelling and Reports stiffness Skin/Breast Denies breast swelling, Denies breast pain, Denies breast mass, Denies lesions and Denies rash Neuro Reports Normal hearing present, Denies abnormal gait, Denies syncope, Denies headache(s), Denies Sensory deficit (Neuro) and Denies weakness Psych Reports no additional complaints Endo Denies cold intolerance, Denies fatigue, Denies polyphagia, Denies polydipsia, Denies polyuria and Denies palpitations Osvaldo/Lymph Denies easy bleeding and Denies easy bruising Aller/Immun Denies seasonal rhinorrhea and Denies wheezing Physical exam (Primary Care) Vital Signs: Last Vital Signs Temp 97.9 F 08/14/25 09:03 Pulse 78 08/14/25 09:03 Resp 16 08/14/25 09:03 BP 128/70 08/14/25 09:03 Pulse Ox 98 08/14/25 09:03 Oxygen Delivery Method Room Air 08/14/25 09:03 BMI result Body Mass Index 32.1 Tobacco/Smoking Status: Tobacco use Status Tobacco use date assessed 08/14/25 08/14/25 09:04 Patient Tobacco Use Status Former Tobacco user 08/14/25 09:04 e-Cigarette/Vaping Use Never Used 08/14/25 09:04 PHQ-9: PHQ-9 Score PHQ-9: Total score 0 08/14/25 09:33 Depression Screening Interpretation: Negative Thrive Assessment: Date of Thrive Assessment Date Thrive assessed 01/16/25 08/14/25 09:04 Const General: no acute distress Nutritional Appearance: obese Orientation/consciousness: patient oriented x3 HENMT Ears: external ears normal, TM's normal bilaterally and EAC's normal General nose exam: Normal external nose present and No nasal discharge present Mouth: Normal oral and palatal mucosa present, oropharynx normal and moist mucous membranes Eyes General: appearance normal, both eyes and all related structures Conjunctivae: conjunctivae normal Pupils: Equal, round and reactive pupils present EOM: EOMs intact bilaterally Neck Neck: Yes full ROM, Yes no lymphadenopathy and Yes supple Resp Effort & Inspection: normal respiratory effort and able to speak in complete sentences Auscultation: clear to auscultation bilaterally Cardio Rate: regular rate Rhythm: regular rhythm Heart sounds: S1 normal heart sound present and S2 normal heart sound present GI Inspection: Yes normal to inspection Palpation (GI): Soft to palpation, nontender and no masses Auscultation: normal bowel sounds General: Yes no CVA tenderness and Yes deferred Back/Spine/Pelvis Back: no CVA tenderness and No back tenderness Skin General skin exam: no rashes or lesions noted Neuro General: patient oriented x3, gait normal, tone normal, moves all extremities, Normal light touch and pain sensation and no focal motor deficits Cranial nerves: Yes Equal, round and reactive pupils present and Yes Normal hearing present Gait exam (Neuro): Normal gait present Motor exam (neuro): 5/5 motor strength present throughout Sensory Exam: No Sensory deficit (Neuro) Extrem General: Yes full ROM, Yes no joint enlargement, Yes no pedal edema, Yes no calf tenderness and Yes normal gait Psych Appearance: grossly normal and well kempt Mental Status: mental status grossly normal Speech and movement: Normal speech and movement present Affect: normal affect Results Reviewed Results Reviewed: Laboratory Tests 01/16/25 08/07/25 09:30 10:34 Estimat Average Glucose 126 Hemoglobin A1c % 6.0 Microalb/Creat Ratio 16.1 Name: Susana Wilburn Age/Sex: 75/F : 1950 Unit#: [id number] Attend Dr: Divine Swift MD Re08/07/25 Status: DEP REF Location: [facility] Disch: SPEC : [id number] MARISOL: 08/07/25 STATUS: COMP REQ : [id number] RECD: 08/07/[address]: Divine Swift MD COMP: 08/07/25 ENTERED: 08/07/[address]: ORDERED: Met Prof Fast, AST, ALT, Lipid Panel, Free T4 Test Result Flag Reference Sodium 140 135-145 mmol/L Potassium 3.7 3.3-5.1 mmol/L CL 104 96-108 mmol/L CO2 29 22-29 mmol/L Gap 11 L 12-20 BUN 12 9-16 mg/dL Creat 0.79 0.5-1.4 mg/dL eGFR > 60 Chronic Kidney Disease: Estimated GFR < 60 mL/min/1.73m2 Severe Kidney Disease: Estimated GFR < 15 mL/min/1.73m2 FBS 115 H 60-99 mg/dL A fasting glucose from 100-125 mg/dl is considered impaired (pre-diabetes). CA 10.1 8.4-10.2 mg/dL AST (GOT) 57 H 5-31 U/L ALT (GPT) 55 H 0-31 U/L Triglyceride 99 <150 mg/dL Desirable Triglyceride: less than 150 mg/dL Borderline High Triglyceride 150-199 mg/dL High Triglyceride: 200-499 mg/dL Very High Triglyceride: greater than or equal to 5OO mg/dL Cholesterol 145 <200 mg/dL Desirable Cholesterol: less than 200 mg/dL Borderline High Cholesterol: 200-239 mg/dL High Cholesterol: greater than 239 mg/dL LDL Calculated 86 <100 mg/dL Desirable LDL: less than 100 mg/dL Near Optimal/Above Optimal LDL: 110-129 mg/dL Borderline High LDL: 130-159 mg/dL High LDL: 160-189 mg/dL Very High LDL: greater than or equal to 190 mg/dL HDL 40 L >40 mg/dL Desirable HDL: greater than 40 mg/dL Note: This HDL assay may give artificially low results in patients with liver disease. Free T4 1.31 0.71-1.85 ng/dL Coding Level of Care Code Est Pt Prev Care >65y(43616) Diagnoses Annual visit for general adult medical examination with abnormal findings Z00.01 Essential hypertension I10 Dyslipidemia E78.5 Acquired hypothyroidism E03.9 Osteopenia of left femoral neck M85.852 Type 2 diabetes mellitus without complication, with no history of insulin use E11.9 Assessment & Plan Assessment & Plan (1) Annual visit for general adult medical examination with abnormal findings: Code(s): Z00.01 - Encounter for general adult medical examination with abnormal findings Plan: Up-to-date with her breast cancer screening and osteoporosis screening. Up-to-date with her colon cancer screening, with a negative Cologuard test done this year. Fasting labs results discussed with patient. Up-to-date with all her vaccines (2) Essential hypertension: Code(s): I10 - Essential (primary) hypertension Category: Medical Plan: Blood pressure at goal of less than 130/80. Continue losartan 50 mg daily and amlodipine 5 mg once a day. Reinforced importance of following a low sodium diet, getting regular exercise, and lowering stress levels. (3) Dyslipidemia: Code(s): E78.5 - Hyperlipidemia, unspecified Category: Medical Plan: Fasting lipids are within normal limits. Continued on pravastatin 80 mg twice a day in addition to adherence to healthy eating habits and regular exercise (4) Acquired hypothyroidism: Code(s): E03.9 - Hypothyroidism, unspecified Category: Medical Plan: Thyroid levels within normal limits continue with current dose of levothyroxine 112 mcg daily (5) Osteopenia of left femoral neck: Code(s): M85.852 - Other specified disorders of bone density and structure, left thigh Category: Medical Plan: Results of latest bone density scan discussed with patient, continue with doing regular weight-bearing exercise, take adequate calcium from dietary sources and continue with taking cholecalciferol at least 2000 units daily (6) Type 2 diabetes mellitus without complication, with no history of insulin use: Code(s): E11.9 - Type 2 diabetes mellitus without complications Category: Medical Plan: Diabetes mellitus controlled, continue with metformin ER 500 mg daily up-to-date with her diabetes retinopathy screening Orders: Orders Comprehensive [place]. Panel Fast 11/01/25 E03.9 - Hypothyroidism, unspecified, E11.9 - Type 2 diabetes mellitus without complications, E78.5 - Hyperlipidemia, unspecified, F41.1 - Generalized anxiety disorder, I10 - Essential (primary) hypertension, M85.852 - Other specified disorders of bone density and structure, left thigh, Z00.01 - Encounter for general adult medical examination with abnormal findings Microalbumin, Random (w Creat) 11/01/25 E03.9 - Hypothyroidism, unspecified, E11.9 - Type 2 diabetes mellitus without complications, E78.5 - Hyperlipidemia, unspecified, F41.1 - Generalized anxiety disorder, I10 - Essential (primary) hypertension, M85.852 - Other specified disorders of bone density and structure, left thigh, Z00.01 - Encounter for general adult medical examination with abnormal findings Vitamin D 25-OH Total 11/01/25 E03.9 - Hypothyroidism, unspecified, E11.9 - Type 2 diabetes mellitus without complications, E78.5 - Hyperlipidemia, unspecified, F41.1 - Generalized anxiety disorder, I10 - Essential (primary) hypertension, M85.852 - Other specified disorders of bone density and structure, left thigh, Z00.01 - Encounter for general adult medical examination with abnormal findings Lipid Panel 11/01/25 E03.9 - Hypothyroidism, unspecified, E11.9 - Type 2 diabetes mellitus without complications, E78.5 - Hyperlipidemia, unspecified, F41.1 - Generalized anxiety disorder, I10 - Essential (primary) hypertension, M85.852 - Other specified disorders of bone density and structure, left thigh, Z00.01 - Encounter for general adult medical examination with abnormal findings Thyroid Stimulating Hormone 11/01/25 E03.9 - Hypothyroidism, unspecified, E11.9 - Type 2 diabetes mellitus without complications, E78.5 - Hyperlipidemia, unspecified, F41.1 - Generalized anxiety disorder, I10 - Essential (primary) hypertension, M85.852 - Other specified disorders of bone density and structure, left thigh, Z00.01 - Encounter for general adult medical examination with abnormal findings Triiodothyronine T3 Free 11/01/25 E03.9 - Hypothyroidism, unspecified, E11.9 - Type 2 diabetes mellitus without complications, E78.5 - Hyperlipidemia, unspecified, F41.1 - Generalized anxiety disorder, I10 - Essential (primary) hypertension, M85.852 - Other specified disorders of bone density and structure, left thigh, Z00.01 - Encounter for general adult medical examination with abnormal findings Free T4 (Free Thyroxine) 11/01/25 E03.9 - Hypothyroidism, unspecified, E11.9 - Type 2 diabetes mellitus without complications, E78.5 - Hyperlipidemia, unspecified, F41.1 - Generalized anxiety disorder, I10 - Essential (primary) hypertension, M85.852 - Other specified disorders of bone density and structure, left thigh, Z00.01 - Encounter for general adult medical examination with abnormal findings Hemoglobin A1c 11/01/25 E03.9 - Hypothyroidism, unspecified, E11.9 - Type 2 diabetes mellitus without complications, E78.5 - Hyperlipidemia, unspecified, F41.1 - Generalized anxiety disorder, I10 - Essential (primary) hypertension, M85.852 - Other specified disorders of bone density and structure, left thigh, Z00.01 - Encounter for general adult medical examination with abnormal findings
[2025-08-14 09:03] VITALS: BP 128/70; PULSE 78; RESP 16; TEMP 36.6; O2SAT 98; BMI 32.1
== END 2025-08-14 09:42 | disposition home or self-care (01) ==
LOC: HO.HMCC 08:24
PROVIDERS: PCP Internal Medicine; Visit Provider Internal Medicine
DX: Z00.01 Encounter for general adult medical examination with abnormal findings (principal); I10 Essential (primary) hypertension; E11.69 Type 2 diabetes mellitus with other specified complication; E78.5 Hyperlipidemia, unspecified; E03.9 Hypothyroidism, unspecified; M85.852 Other specified disorders of bone density and structure, left thigh

== ENCOUNTER → 2025-08-14 08:23 | Outpatient (BNVA) | payer MEDICARE, SELFPAY | PROVIDERS: PCP Internal Medicine; Visit Provider Internal Medicine | DX: Z00.01 Encounter for general adult medical examination with abnormal findings (principal); I10 Essential (primary) hypertension; E78.5 Hyperlipidemia, unspecified; E03.9 Hypothyroidism, unspecified; E11.9 Type 2 diabetes mellitus without complications; M85.80 Other specified disorders of bone density and structure, unspecified site; M85.852 Other specified disorders of bone density and structure, left thigh | CPT/HCPCS: 96127; 99397 ==